=== PATIENT | female | born 1990 | race Caucasian/White ===

== ENCOUNTER 2024-06-07 12:23 | Outpatient (CLI) | payer OTHER, SELFPAY ==
--- NOTE | ~2024-06-07 | XR_ITS ---
CHEST RADIOGRAPH, PA AND LATERAL CLINICAL HISTORY: MID CHEST PAIN AND TIGHTNESS . COMPARISON: None available TECHNIQUE: PA and lateral views of the chest. FINDINGS The cardiomediastinal silhouette is unremarkable. The lungs are clear. Visualized osseous structures and soft tissues are unremarkable. IMPRESSION: No focal infiltrate or effusion. Reviewed, dictated and finalized at location A. [employer] EMPLOYMENT OPPORTUNITY OFFICER
== END 2024-06-07 12:24 | disposition home or self-care (01) ==
PROVIDERS: PCP Emergency Medicine; Visit Provider Nurse Practitioner Family
DX: J40 Bronchitis, not specified as acute or chronic (principal)
CPT/HCPCS: 71046

== ENCOUNTER 2024-09-06 12:38 | Outpatient (CLI) | payer OTHER, SELFPAY ==
--- OUTSIDE RECORDS SUMMARY | 2024-09-06 12:41 | XMS_ITS | Clinical Summary ---
Author Organization [facility] Address [address] [place] [address] Care Team Providers Care Client Services Representative Name Role Phone Jeremias Sutherland MD Primary Care Provider [phone] Allergies Active Allergy Reactions Criticality Noted Date Comments Latex Rash Low 10/23/2021 Seasonal Runny Nose,Eyes Water & Itch Low 022 Medications vitamin 27-1 MG Tab tablet Take 1 tablet by mouth daily. Active Active Problems Problem Noted Date Diagnosed Date History of section 11/27/2021 ([facility] 11/22/2021 Gestational HTN ([facility]) 11/22/2021 Comments Yes Encounters Date Type Department Care Team Description 06/18/2024 11:57 PM MANAGER DIALYSIS - 06/19/2024 1:32 AM [facility] Emergency [facility] Emergency Room [address] [place] [address] Obdulia Ash MD Vaginal Bleeding (/) Discharge Disposition: Home or Self Care (Routine Discharge) 06/18/2024 8:28 PM MANAGER DIALYSIS - 06/18/2024 11:24 PM [facility] Emergency [facility] Emergency Room [address] [place] [address] Sarah Chester DO Vaginal Bleeding Discharge Disposition: Another Health Care Institution Not Defined 06/18/2024 Travel from Last 3 Months Immunizations Name Administration Dates Next Due Tdap (Generic) 09/30/2021 Family History Medical History Relation Comments None Brother None Father Diabetes Mother Heart Mother Hyperlipidemia Mother Hypertension Mother Stroke Mother grows tumors- benign Mother None Sister 1 None Sister 2 None Sister 3 None Son Relation Status Comments Brother Alive Father Alive Mother Alive Sister 1 Alive Sister 2 Alive Sister 3 Alive Son Alive Social History Tobacco Use Types Packs/Day Years Used Date Smoking Tobacco: Never Smokeless Tobacco: Never Tobacco Cessation:Counseling Given: No Alcohol Use Standard Drinks/Week Comments Not Currently 0 (1 standard drink = 0.6 oz pur e alcohol) PHQ-2 Answer Date Recorded Patient Health Questionnaire-2 Score 0 09/01/2022 Comments Yes Sex and Gender Information Value Date Recorded Sex Assigned at Not on file Legal Sex Female 7:02 PM CDT Gender Identity Not on file Sexual Orientation Not on file Last Filed Vital Signs Vital Sign Reading Time Taken Comments Blood Pressure 118/67 06/19/2024 12:01 AM MANAGER DIALYSIS Pulse 80 06/18/2024 11:59 PM MANAGER DIALYSIS Temperature 36.4 C (97.6 F) 06/18/2024 11:59 PM MANAGER DIALYSIS Respiratory Rate 18 06/18/2024 11:59 PM MANAGER DIALYSIS Oxygen Saturation 100% 06/19/2024 12:01 AM MANAGER DIALYSIS Inhaled Oxygen Concentration - - Weight 151 kg (332 lb 14.3 oz) 06/18/2024 11:59 PM MANAGER DIALYSIS Height 170.2 cm (5' 7 ) 06/18/2024 11:59 PM MANAGER DIALYSIS Body Mass Index 52.14 06/18/2024 11:59 PM MANAGER DIALYSIS Plan of Treatment Health Maintenance Due Date Last Done Comments Cervical Cancer Screening Pa p Smear (Age 30 to 64) Every 3 Years 1992 Annual Physical 1995 Hepatitis C 2010 Hepatitis B Vaccines (1 of 3 - 19+ 3-dose series) 2011 Cervical Cancer Screening Pa p with HPV Testing (Age 30 to 64) Every 5 Years 2022 Cervical Cancer Screening with HPV 2022 PHQ-2 (Physician [place]) 09/01/2023 09/01/2022 COVID-19 Vaccine ( - 2023-2 5 season) 2024 Influenza Adult (#1) 2024 PHQ-2 (Physician [place]) 07/19/2024 09/01/2022 DTaP, Tdap and Td Vaccines ( 2 - Td or Tdap) 10/01/2031 09/30/2021 RSV Immunization or 60+ Years (1 - 1-dose 75+ series) 2067 HPV Vaccines Aged Out No longer eligi ble based on patient's age to complete this topic Meningococcal B Vaccine Aged Out No l onger eligible based on patient's age to complete this topic Meningococcal Vaccine Aged Out No lindy mitesh eligible based on patient's age to complete this topic Pneumococcal Vaccine: Pediat rics (0 to 5 Years) and At-Risk Patients (6 to 64 Years) Aged Out No longer eligi ble based on patient's age to complete this topic RSV Immunizations Under 20 Months Aged Out No longer eligible based on patient's age to complete this topic Procedures Procedure Name Priority Date/Time Associated Diagnosis Comments US OB <14WKS TA+TV STAT 06/19/2024 12 :52 AM MANAGER DIALYSIS HC BLOOD TYPING ABO STAT 06/18/2024 8 :55 PM MANAGER DIALYSIS URINALYSIS, AUTO, COMPLETE STAT 06/18/2024 8:55 PM MANAGER DIALYSIS HCG QUANT (SERUM)-CHORIONIC GONADOTROPIN STAT 06/18/2024 8:55 PM MANAGER DIALYSIS COMPREHENSIVE METABOLIC PANEL STAT 06/18/2024 8:55 PM MANAGER DIALYSIS CBC W/DIFF AUTOMATED STAT 06/18/2024 8:55 PM MANAGER DIALYSIS from Last 3 Months Results * US OB <14WKS TA+TV (06/19/2024 12:52 AM MANAGER DIALYSIS) Anatomical Region Laterality Modality Ultrasound 06/19/2024 1:00 AM MANAGER DIALYSIS Impressions 06/19/2024 1:16 AM MANAGER DIALYSIS IMPRESSION: 1. Single viable intrauterine estimated to be 9 weeks 6 days with MC 01/16/2025 +/- 2 weeks based on crown-rump length measurement, which is 6 days smaller than dates obtained from the LMP. 2. heart rate is 140 bpm. 3. Tiny subchorionic hemorrhage is suspected. 4. No yolk sac is visualized. 5. Right ovary is not visualized. What is reported to be the left ovary is upper normal in size with no suspicious mass. 6. No free fluid in the cul-de-sac and no suspicious adnexal mass. Referred By: SARAH CHESTER Interpreted By: Cordelia Fernandez MD, 06/19/2024 1:00 AM Narrative 06/19/2024 1:[address] [facility] [address] [place] [address] EXAM: US OB <14WKS TA + TV CLINICAL INFORMATION: Evaluate for ectopic .. LMP: 04/05/2024 corresponding to a 10 week 5 day with MC 01/10/2025. G3, P2. Vaginal bleeding today. TECHNIQUE: Multiple transabdominal and transvaginal sonographic images of the OB pelvis were obtained. COMPARISON: AP ectopic . FINDINGS: ? The uterus is anteverted and of normal size?measuring 13.8 x 10.2 x 0.5 cm with volume of 630.4 mL. There is a single viable intrauterine with heart rate of 140 bpm. [place]-rump length measurement is 3.0 cm corresponding to 9 weeks 6 day with MC 01/16/2025 +/- 2 weeks, which is 6 days smaller than dates obtained from the LMP, which is within 2 standard deviations. The yolk sac is not well visualized. Mean sac diameter is 3.81 cm corresponding to a 9 week 0 day . There is a tiny nonspecific 0.9 x 0.6 x 0.8 cm hypoechoic density anterior to the gestational sac that may represent a tiny subchorionic hemorrhage. What is reported as the left ovary by the labor relations manager measures 2.7 x 5.1 x 4.0 cm with volume of 28.8 mL. No suspicious mass is seen within the structure reported to be the left ovary. The right ovary is not visualized with either transabdominal or the transvaginal technique. No free fluid is seen in the cul-de-sac. No suspicious adnexal mass. ? Procedure Note Cordelia Fernandez MD - 06/19/2024 [facility] [address] [place] [address] EXAM: US OB <14WKS TA + TV CLINICAL INFORMATION: Evaluate for ectopic .. LMP: 4corresponding to a 10 week 5 day with MC 01/10/2025. G3, P2.Vaginal bleeding today. TECHNIQUE: Multiple transabdominal and transvaginal sonographic images ofthe OB pelvis were obtained. COMPARISON: AP ectopic . FINDINGS: ? The uterus is anteverted and of normal size?measuring 13.8 x 10.2 x 0.5 cmwith volume of 630.4 mL. There is a single viable intrauterine pregnancywith heart rate of 140 bpm. [place]-rump length measurement is 3.0 cmcorresponding to 9 weeks 6 day with MC 01/16/2025 +/- 2 weeks,which is 6 days smaller than dates obtained from the LMP, which is within2 standard deviations. The yolk sac is not well visualized. Mean sacdiameter is 3.81 cm corresponding to a 9 week 0 day . There is atiny nonspecific 0.9 x 0.6 x 0.8 cm hypoechoic density anterior to thegestational sac that may represent a tiny subchorionic hemorrhage. What is reported as the left ovary by the labor relations manager measures 2.7 x 5.1 x4.0 cm with volume of 28.8 mL. No suspicious mass is seen within thestructure reported to be the left ovary. The right ovary is notvisualized with either transabdominal or the transvaginal technique. Nofree fluid is seen in the cul-de-sac. No suspicious adnexal mass. ? IMPRESSION: 1. Single viable intrauterine estimated to be 9 weeks 6 dayswith MC 01/16/2025 +/- 2 weeks based on crown-rump length measurement,which is 6 days smaller than dates obtained from the LMP. 2. heart rate is 140 bpm. 3. Tiny subchorionic hemorrhage is suspected. 4. No yolk sac is visualized. 5. Right ovary is not visualized. What is reported to be the left ovaryis upper normal in size with no suspicious mass. 6. No free fluid in the cul-de-sac and no suspicious adnexal mass. Referred By: SARAH CHESTER Interpreted By: Cordelia Fernandez MD, 06/19/2024 1:00 AM Obdulia Ash MD ULTRASOUND Final Result * (ABNORMAL) Urinalysis, Auto, Complete (06/18/2024 8:55 PM MANAGER DIALYSIS) COLOR (U) YELLOW 06/18/2024 9:57 PM [facility] TRANSPARENCY CLEAR 06/18/2024 9:57 PM [facility] SPECIFIC GRAVITY (U) >1.030() 1.000 - 1.030 06/18/2024 9:57 PM [facility] U PH 6.0 5.0 - 9.0 06/18/2024 9:57 PM [facility] LEUKOCYTES (U) NEGATIVE NEGATIVE 06/18/2024 9:57 PM [facility] NITRITES NEGATIVE NEGATIVE 06/18/2024 9:57 PM [facility] PROTEIN RANDOM (U) NEGATIVE NEGATIVE 06/18/2024 9:57 PM [facility] GLUCOSE (U) NEGATIVE NEGATIVE 06/18/2024 9:57 PM [facility] KETONES MG/DL (U) NEGATIVE NEGATIVE 06/18/2024 9:57 PM [facility] BILIRUBIN (U) NEGATIVE NEGATIVE 06/18/2024 9:57 PM [facility] BLOOD (U) 2+(A) NEGATIVE 06/18/2024 9:57 PM [facility] WBC/HPF NONE SEEN 0 - 5 /HPF 06/18/2024 9:57 PM [facility] RBC/HPF 0-5 0 - 5 /HPF 06/18/2024 9:57 PM [facility] EPI/HPF FEW /HPF 06/18/2024 9:57 PM [facility] URINE SPECIMEN OBTAINED BY CLEAN CATCH PROCEDURE / Unknown 06/18/2024 8:55 PM MANAGER DIALYSIS us Denis Damián URINE ORDERABLES Final Result [facility] [address] [place] [address], [place] [phone] * (ABNORMAL) COMPREHENSIVE METABOLIC PANEL (06/18/2024 8:55 PM MANAGER DIALYSIS) GLUCOSE 80 70 - 99 MG/DL 06/18/2024 10:08 PM [facility] BUN 13 7 - 18 MG/DL 06/18/2024 10:08 PM [facility] CREATININE S/P/B 0.66 0.55 - 1.02 MG/DL 06/18/2024 10:08 PM [facility] SODIUM S/P/B 138 136 - 145 MMOL/L 06/18/2024 10:08 PM [facility] POTASSIUM S/P/B 3.4(L) 3.5 - 5.1 MMOL/L 06/18/2024 10:08 PM [facility] CHLORIDE S/P/B 101 100 - 108 MMOL/L 06/18/2024 10:08 PM [facility] CO2 27.5 21 - 32 MMOL/L 06/18/2024 10:08 PM [facility] CALCIUM S/P/B 9.3 8.5 - 10.1 MG/DL 06/18/2024 10:08 PM [facility] BILIRUBIN TOTAL S/P/B 0.2 0.2 - 1.2 MG/DL 06/18/2024 10:08 PM [facility] TOTAL PROTEIN S/P/B 7.6 6.4 - 8.2 G/DL 06/18/2024 10:08 PM [facility] ALBUMIN S/P/B 3.2(L) 3.4 - 5.0 G/DL 06/18/2024 10:08 PM [facility] AST 18 15 - 37 U/L 06/18/2024 10:08 PM [facility] ALT 22 14 - 55 U/L 06/18/2024 10:08 PM [facility] ALKALINE PHOSPHATASE S/P/B 81 50 - 136 U/L 06/18/2024 10:08 PM [facility] ANION GAP 9.5 5 - 15 MMOL/L 06/18/2024 10:08 PM [facility] BUN CREATININE RATIO 19.7 6 - 26 06/18/2024 10:08 PM [facility] A/G RATIO 0.7(L) 1.0 - 2.0 RATIO 06/18/2024 10:08 PM [facility] GFR ESTIMATE >90 >90 ML/MIN/1.7 3 M2 06/18/2024 10:08 PM [facility] Comment: NOTE: eGFR is not calculated for patients <18 years of age. This is an estimated GFR calculation using the new CKD EPI creatinine equation without race and so does not require a correction factor for race. This estimated GFR should not be used for calculating drug doses. 06/18/2024 8:55 PM MANAGER DIALYSIS us Sarah Chester DO LABORATORY Final Result [facility] [address] [place] [address], [place] [phone] * (ABNORMAL) HCG QUANTITATIVE SERUM (06/18/2024 8:55 PM MANAGER DIALYSIS) HCG QUANTITATIVE 38,380(H) 0 - 6 MIU/ML 06/18/2024 10:08 PM MANAGER DIALYSIS [facility] Comment: WEEKS OF REFERENCE RANGES NON- FEMALE 0-6 0.2 - 1 5 - 50 1 - 2 50 - 500 2 - 3 100 - 5000 3 - 4 500 - 10,000 4 - 5 1000 - 50,000 5 - 6 10,000 - 100,000 6 - 8 15,000 - 200,000 2 - 3 MONTHS 10,000 - 100,000 06/18/2024 8:55 PM MANAGER DIALYSIS [facility] LABORATORY Final Result Performing Organization Address City/[facility]/ZIP Co de Phone Number [facility] [address] [place] [address], [place] [phone] * BLOOD TYPING, ABO AND RH (06/18/2024 8:55 PM MANAGER DIALYSIS) ABO/RH A POSITIVE 06/18/2024 9:51 PM MANAGER DIALYSIS [facility] 06/18/2024 8:55 PM MANAGER DIALYSIS [facility] BLOOD BANK TEST ORDERABLES Fin al Result [facility] [address] [place] [address], [place] [phone] * (ABNORMAL) CBC W/DIFF AUTOMATED (06/18/2024 8:55 PM MANAGER DIALYSIS) WBC 12.03(H) 4.4 - 11.0 x10'3/uL 06/18/2024 9:14 PM MANAGER DIALYSIS [facility] RBC 4.25(L) 4.50 - 5.10 x10'6/uL 06/18/2024 9:14 PM MANAGER DIALYSIS [facility] HGB 12.2(L) 12.3 - 15.3 G/DL 06/18/2024 9:14 PM [facility] HCT 36.7 35.9 - 44.6 % 06/18/2024 9:14 PM [facility] MCV 86.4 80.0 - 96.0 FL 06/18/2024 9:14 PM [facility] MCH 28.7 25.3 - 30.9 PG 06/18/2024 9:14 PM [facility] MCHC 33.2 31.0 - 34.1 G/DL 06/18/2024 9:14 PM [facility] RDW 13.4 12.4 - 15.1 % 06/18/2024 9:14 PM [facility] PLT 311 151 - 353 x10'3/uL 06/18/2024 9:14 PM [facility] MPV 9.8 9.6 - 12.0 FL 06/18/2024 9:14 PM [facility] RBC MORPHOLOGY NORMAL 06/18/2024 9:14 PM [facility] PLT MORPH. NORMAL 06/18/2024 9:14 PM [facility] WBC MORPHOLOGY NORMAL 06/18/2024 9:14 PM [facility] LYMPHOCYTES % 20.0 15.8 - 45.0 % 06/18/2024 9:14 PM [facility] NEUTROPHILS % 71.4 42.1 - 71.9 % 06/18/2024 9:14 PM [facility] MONOCYTES % 5.9 5.7 - 12.5 % 06/18/2024 9:14 PM [facility] EOSINOPHILS 2.3 0.0 - 5.6 % 06/18/2024 9:14 PM [facility] BASOPHILS 0.2 0.0 - 1.3 % 06/18/2024 9:14 PM MANAGER DIALYSIS [facility] ABS. NEUTROPHILS 8.57(H) 1.40 - 6.00 x10'3/uL 06/18/2024 9:14 PM MANAGER DIALYSIS [facility] IMMATURE GRANS % 0.2 0.0 - 0.5 % 06/18/2024 9:14 PM MANAGER DIALYSIS [facility] ABS. LYMPHOCYTES 2.41 0.80 - 4.70 x10'3/uL 06/18/2024 9:14 PM MANAGER DIALYSIS [facility] 06/18/2024 8:55 PM MANAGER DIALYSIS Sarah Chester DO LABORATORY Final Result [facility] [address] [place] [address], from Last 3 Months Insurance Advance Directives * Full Code (Latest Code Status on File) Date Activated Date Inactivated Comments 11/27/2021 9:25 AM 11/29/2021 3:42 PM * Full Code Date Activated Date Inactivated Comments 11/22/2021 12:01 PM 11/23/2021 11:29 AM * Full Code Date Activated Date Inactivated Comments 11/19/2021 12:13 PM 11/19/2021 3:01 PM Care Teams Client Services Representative Relationship Specialty Start Date End Date Jeremias Sutherland MD [address] [place] [address] PCP - General EMERGENCY MEDICINE 05/15/23
--- OUTSIDE RECORDS SUMMARY | 2024-09-06 12:41 | XMS_ITS | Encounter Summary ---
Author Organization [facility] Address [address] [place] [address] Care Team Providers Care Mix Maker Name Role Phone Rachel Valenzuela MD Primary Care Provider + Nolvia Jonas MD Primary Care Provider [phone] Jeremias Sutherland MD Primary Care Provider [phone] Encounter Details Date Type Department Care Team (Late st Contact Info) Description 10/17/2014 Abstract [facility] CONVERSION [address] [place] [address] , Subha Shannon MD Social History Tobacco Use Types Packs/Day Years Used Date Smoking Tobacco: Never Assessed Comments Unknown Sex and Gender Information Value Date Recorded Sex Assigned at Not on file Legal Sex Female 7:02 PM CDT Gender Identity Not on file Sexual Orientation Not on file documented as of this encounter Plan of Treatment Not on file documented as of this encounter Visit Diagnoses Not on filedocumented in this encounter Care Teams Mix Maker Relationship Specialty Start Date End Date Rachel Valenzuela MD PCP - General FAMILY PRACTICE 07/15/21 10/22/21 [place] [address] [facility] [address] [place] [address] PCP - General FAMILY PRACTICE 10/23/21 05/14/23 Jeremias Sutherland MD [address] [place] [address] PCP - General EMERGENCY MEDICINE 05/15/23 documented as of this encounter
--- OUTSIDE RECORDS SUMMARY | 2024-09-06 12:41 | XMS_ITS | Clinical Summary ---
Author Organization [facility] Address [address] [place] [phone] Care Team Providers Care Political Aide Name Role Phone Unavailable Primary Care Provider Unavailabl e Allergies Active Allergy Reactions Criticality Noted Date Comments Latex Rash Low 10/23/2021 Medications No known medications Active Problems Problem Noted Date Diagnosed Date H/O seasonal allergies 12/02/2022 Gestational HTN 11/22/2021 Social History Tobacco Use Types Packs/Day Years Used Date Smoking Tobacco: Never Comments No Sex and Gender Information Value Date Recorded Sex Assigned at Not on file Legal Sex Female 8:11 AM CDT Gender Identity Not on file Sexual Orientation Not on file Last Filed Vital Signs Vital Sign Reading Time Taken Comments Blood Pressure 114/76 12/02/2022 9:27 AM CDT Pulse 66 12/02/2022 9:27 AM CDT Temperature 36.8 C (98.2 F) 12/02/2022 9:27 AM CDT Respiratory Rate - - Oxygen Saturation 97% 12/02/2022 9:27 AM CDT Inhaled Oxygen Concentration - - Weight 144.4 kg (318 lb 6 oz) 12/02/2022 9:27 AM CDT Height 170.2 cm (5' 7 ) 12/02/2022 9:27 AM CDT Body Mass Index 49.86 12/02/2022 9:27 AM CDT Plan of Treatment Upcoming Encounters Date Type Department Care Team (Late st Contact Info) Description 09/14/2024 10:15 AM CYTOGENETICS TECHNOLOGIST Appointment [facility] [place] [address] [place] [id number] Buzz Dhillon MD [address] [place] [address] Health Maintenance Due Date Last Done Comments HEPATITIS B VACCINES (1 of 3 - 19+ 3-dose series) 2011 CERVICAL CANCER SCREENING 2022 INFLUENZA VACCINE (#1) 2024 Preventative Visit- Commercial 07/19/2024 DTAP/TDAP/TD VACCINES (2 - T d or Tdap) 10/01/2031 09/30/2021 HPV VACCINES Aged Out No longer eligi ble based on patient's age to complete this topic Insurance [employer] CHOICE
[2024-09-06 13:29] LABS: Basophils Percent Auto 0.3 % (0.2-1.2); Eosinophils Absolute Auto 0.2 K/mm3 (0-0.3); Eosinophils Percent Auto 1.9 % (0-4.4); Hemoglobin 11.5 g/dL (12.0-15.0); Immature Granulocyte Absolute 0.06 K/mm3 (0.00-0.031); Immature Granulocyte Percent A 0.5 % (0-0.5); Lymphocytes Percent Auto 15.2 % (18.3-44.2); Mean Corpuscular HGB Conc 32.9 g/dl (32-36); Mean Corpuscular Hemoglobin 28.4 pg (26-34); Mean Corpuscular Volume 86.4 fl (80-100); Mean Platelet Volume 10.2 fl (7.4-10.4); Monocytes Absolute Auto 0.7 K/mm3 (0.1-0.6); Monocytes Percent Auto 5.8 % (2.6-8.5); Neutrophils Percent Auto 76.3 % (45.5-73.1); Platelet Count Result 315 k/mm3 (150-375); Red Blood Count 4.05 M/mm3 (4.2-5.4); Red Cell Distribution Width 13.6 % (11.5-14.5); White Blood Count 11.9 K/mm3 (4.5-10.0)
[2024-09-06 13:42] LABS: Hemoglobin A1C 5.1 % (<5.7)
[2024-09-06 13:47] LABS: Add Urine Microscopic? NO; Appearance Urine Clear (Clear); Bilirubin Urine Negative (Negative); Blood Urine Negative (Negative); Color Urine Yellow (Yellow); Glucose Urine UA Negative (Negative); Ketones Urine Negative (Negative); Leukocyte Esterase Ur Negative LEU/UL (Negative); Nitrate Urine Negative (Negative); Protein Urine Negative (Negative); Specific Grav Ur 1.003 (1.001-1.035); Urobilinogen Urine 0.2 mg/dL (<2.0); pH Urine 6.5 (5.0-9.0)
[2024-09-06 14:10] LABS: HIV 1/2 Ab P24 Ag Result Negative (Negative)
[2024-09-06 14:19] LABS: Syphilis IgG/IgM Antibody Negative (Negative)
[2024-09-06 14:24] LABS: Hepatitis B Surface Antigen Negative (Negative); Rubella IgG Antibody 39.5 IU/ML
[2024-09-06 14:41] LABS: Hepatitis C Virus Antibody Negative (Negative)
[2024-09-08 08:28] LABS: Varicella IgG Antibody 3.62 S/CO
[2024-09-08 18:48] LABS: Hematocrit 36.4 % (35.0-45.0); Hemoglobin 11.7 g/dL (11.7-15.5); MCH 28.2 pg (27.0-33.0); MCV 87.7 fL (80.0-100.0); RDW 12.9 % (11.0-15.0); Red Blood Cell Count 4.15 Million/uL (3.80-5.10)
== END 2024-09-06 12:39 | disposition home or self-care (01) ==
LOC: ANHLAB 12:39
PROVIDERS: PCP Emergency Medicine; Visit Provider Nurse Practitioner Obstetrics & Gynecology
DX: Z34.90 Encounter for supervision of normal pregnancy, unspecified, unspecified trimester (principal)
CPT/HCPCS: 36415; 81003; 83021; 83036; 85025; 86593; 86703; 86762; 86787; 86803; 86850; 86900; 86901; 87086; 87340; G0432

== ENCOUNTER 2024-11-27 11:47 | Outpatient (CLI) | payer OTHER, SELFPAY ==
--- NOTE | ~2024-11-27 | XR_ITS ---
Clinical Indication: Wheezing PA and lateral views of the chest: Comparison: 06/07/2024 Findings: The lungs are clear, without evidence of focal consolidation or pleural effusion. Cardiome diastinal silhouette is within normal limits. Bones and soft tissues are unremarkable. Impression: Normal chest. Reviewed, dictated and finalized at location . Impression: Normal chest.
--- OUTSIDE RECORDS SUMMARY | 2024-11-27 11:51 | XMS_ITS | Encounter Summary ---
Author Organization [facility] Address [address] [place] [address] Care Team Providers Care Health Underwriter Name Role Phone Rachel Valenzuela MD Primary Care Provider + Nolvia Jonas MD Primary Care Provider [phone] Jeremias Sutherland MD Primary Care Provider [phone] Encounter Details Date Type Department Care Team (Late st Contact Info) Description 10/17/2014 Abstract [facility] CONVERSION [address] [place] [address] , Subha Shannon MD Social History Tobacco [...] on filedocumented in this encounter Care Teams Health Underwriter Relationship Specialty Start Date End Date Rachel Valenzuela MD PCP - General FAMILY PRACTICE 07/15/21 10/22/21 [place] [address] [facility] [address] [place] [address] PCP - General FAMILY PRACTICE 10/23/21 05/14/23 Jeremias Sutherland MD [address] [place] [address] PCP - General EMERGENCY MEDICINE 05/15/23 documented as of this encounter
--- OUTSIDE RECORDS SUMMARY | 2024-11-27 11:51 | XMS_ITS | Clinical Summary ---
Author Organization [facility] Address [address] [place] [address] Care Team Providers Care Ctrs Name Role Phone Jeremias Sutherland MD Primary Care Provider [phone] Allergies Active Allergy Reactions Criticality Noted Date Comments Latex Rash Low 10/23/2021 Seasonal Runny Nose,Eyes Water & Itch Low 022 Medications vitamin 27-1 MG Tab tablet Take 1 tablet by mouth daily. Active Active Problems Problem Noted Date Diagnosed Date History of section 11/27/2021 ([facility]) 11/22/2021 Gestational HTN ([facility]) 11/22/2021 Comments Yes Immunizations Immunization Administration Dates Next Due Tdap (Generic) 09/30/2021 [...] Comments Blood Pressure 118/67 06/19/2024 12:01 AM GOVERNMENT EMPLOYEE Pulse 80 06/18/2024 11:59 PM GOVERNMENT EMPLOYEE Temperature 36.4 C (97.6 F) 06/18/2024 11:59 PM GOVERNMENT EMPLOYEE Respiratory Rate 18 06/18/2024 11:59 PM GOVERNMENT EMPLOYEE Oxygen Saturation 100% 06/19/2024 12:01 AM GOVERNMENT EMPLOYEE Inhaled Oxygen Concentration - - Weight 151 kg (332 lb 14.3 oz) 06/18/2024 11:59 PM GOVERNMENT EMPLOYEE Height 170.2 cm (5' 7 ) 06/18/2024 11:59 PM GOVERNMENT EMPLOYEE Body Mass Index 52.14 06/18/2024 11:59 PM GOVERNMENT EMPLOYEE Plan of Treatment Health Maintenance Due Date Last Done Comments Cervical Cancer Screening Pa p Smear (Age 30 to 64) Every 3 Years 1992 Annual Physical 1995 Hepatitis C 2010 Hepatitis B Vaccines (1 of 3 - 19+ 3-dose series) 2011 Cervical Cancer Screening Pa p with HPV Testing (Age 30 to 64) Every 5 Years 2022 Cervical Cancer Screening with HPV 2022 COVID-19 Vaccine ( - 2023-2 5 season) 2024 PHQ-2 (Physician [place]) 07/19/2024 DTaP, Tdap and Td Vaccines ( 2 [...] 5 Years) and At-Risk Patients (6 to 49 Years) Aged Out No longer eligi ble based on patient's age to complete this topic RSV Immunizations Under 20 Months Aged Out No longer eligible based on patient's age to complete this topic Insurance [employer] Advance Directives * Full Code (Latest Code Status on File) Date Activated Date Inactivated Comments 11/27/2021 9:25 AM 11/29/2021 3:42 PM * Full Code Date Activated Date Inactivated Comments 11/22/2021 12:01 PM 11/23/2021 11:29 AM * Full Code Date Activated Date Inactivated Comments 11/19/2021 12:13 PM 11/19/2021 3:01 PM Care Teams Ctrs Relationship Specialty Start Date End Date Jeremias Sutherland MD [address] [place] [address] PCP - General EMERGENCY MEDICINE 05/15/23
--- OUTSIDE RECORDS SUMMARY | 2024-11-27 11:51 | XMS_ITS | Clinical Summary ---
Author Organization [facility] Address [address] [place] [phone] Care Team Providers Care College Admissions Counselor Name Role Phone Unavailable Primary Care Provider Unavailabl e Allergies Active Allergy Reactions Criticality Noted Date Comments Latex Rash Low 10/23/2021 Medications No known medications Active Problems Problem Noted Date Diagnosed Date H/O seasonal allergies 12/02/2022 Gestational HTN 11/22/2021 Encounters Date Type Department Care Team Description 10/17/2024 External Device Data STL ABSTRACTION Provider, Abstract 10/12/2024 10:15 AM CDT - 10/12/2024 11:59 PM CDT Hospital Encounter [facility] [address] [place] [phone] Trina Gonzalez MD Discharge Disposition: Home or Self Care 09/23/2024 External Device Data STL ABSTRACTION Provider, Abstract 09/22/2024 External Device Data STL ABSTRACTION Provider, Abstract 09/20/2024 External Device Data STL ABSTRACTION Provider, Abstract 09/14/2024 10:09 AM BOTTLE SORTER - 09/14/2024 11:59 PM BOTTLE SORTER Hospital Encounter [facility] [address] [place] [phone] Buzz Bowens MD Discharge Disposition: Home or Self Care from Last 3 Months Social History Tobacco Use Types Packs/Day Years [...] 12/02/2022 9:27 AM CDT Plan of Treatment Health Maintenance Due Date Last Done Comments HEPATITIS B VACCINES (1 of 3 - 19+ 3-dose series) 2011 HPV/Cotest (21-29) 2013 CERVICAL CANCER SCREENING 2022 HPV/Cotest (30-65) 2022 PAP SMEAR 2022 INFLUENZA VACCINE (#1) 2024 DTAP/TDAP/TD VACCINES (2 - T d or Tdap) 10/01/2031 09/30/2021 HPV VACCINES Aged Out No longer eligi ble based on patient's age to complete this topic Procedures Procedure Name Priority Date/Time Associated Diagnosis Comments US OB FOLLOW UP PER FETUS Routine 10/12/2024 11:10 AM CDT Obesity affecting , antepartum, second trimester US OB 14+ WKS SINGLE GEST Routine 09/14/2024 11:17 AM BOTTLE SORTER screening for malformation using ultrasonics from Last 3 Months Results * US OB FOLLOW UP PER FETUS (10/12/2024 11:10 AM CDT) Anatomical Region Laterality Modality Pelvis Ultrasound 10/12/2024 10:3 9 AM CDT Narrative 10/12/2024 11:19 AM CDT STL FOLLOW UP ----- Pat. Name: MARCI ADAM Study Date: 10/12/2024 10:39am Pat. NO: [id number] Referring MD: BUZZ BOWENS MD Site: [facility] Technician: Tarah Hess RDMS : 1990 Age: 34 ----- INDICATION ----- Maternal Obesity (BMI>40) Complicating Screening Follow-Up 4ch, palate, spine, R kidney CODING ----- Diagnoses Z3A.27: Weeks of gestation O99.212: Obesity complicating Z3A.27: Weeks of gestation Z36.2: Encounter for other screening follow-up O99.212: Obesity complicating Procedures 61889: Ultrasound, uterus, real time with image documentation, follow up, transabdominal approach per fetus HISTORY ----- OB History 3. Para 2 MATERNAL ASSESSMENT ----- Physical Exam Initial weight 150 kg, 330 lb. Initial BMI 51.69 kg/m METHOD ----- Transabdominal ultrasound examination ----- Bullock . Number of fetuses: 1 DATING ----- GA by prior assessment 27 w + 1 d MC by prior assessment: 01/10/2025 Ultrasound examination on: 10/12/2024 GA by U/S based upon: AC, BPD, EFW, Femur, HC GA by U/S 27 w + 0 d MC by U/S: 01/11/2025 Method of dating: Restore dating from previous exam Assigned: based on stated MC, selected on 09/14/2024 Assigned GA 27 w + 1 d Assigned MC: 01/10/2025 BIOMETRY ----- BPD 64.7 mm 26w 1d 12% Hadlock OFD 88.9 mm 28w 4d 89% Nawaf HC 244.3 mm 26w 4d 9% Hadlock AC 237.9 mm 28w 1d 71% Hadlock Femur 50.1 mm 27w 0d 29% Hadlock HC / AC 1.03 11% Nicolaides Weight Calculation: EFW 1,072 g 27w 1d 49% Hadlock EFW (lb,oz) 2 lb 6 oz EFW by Hadlock ([id number]) Head / Face / Neck Biometry: Director Women 2.1 mm Extremities / Bony Struc Biometry: FL / BPD 0.77 FL / HC 0.21 FL / AC 0.21 GENERAL EVALUATION ----- Cardiac activity present. FHR 130 bpm. movements: present. Presentation: cephalic Placenta: Placental site: posterior Umbilical cord: Cord vessels: 3 vessel cord. Insertion site: placental insertion: normal Amniotic fluid: Amount of AF: normal amount. MVP 4.7 cm ANATOMY ----- The following structures appear normal: Head / Neck Cranium. Lateral ventricles. Choroid plexus. Midline falx. Cavum septi pellucidi. Cerebellum. Cisterna magna. Face Palate. Heart / Thorax 4-chamber view. Diaphragm. Abdomen Stomach. Kidneys. Bladder. Spine Cervical spine. Thoracic spine. Lumbar spine. Sacral spine. sex: female. GROWTH OVERVIEW ----- Exam date GA BPD (mm) HC (mm) AC (mm) FL (mm) HL (mm) EFW (g) 09/14/2024 23w 1d 54.0 20% 201.4 9% 194.1 72% 45.1 88% 36.3 25% 664 85% 10/12/2024 27w 1d 64.7 12% 244.3 9% 237.9 71% 50.1 29% 1,072 49% COMMENT ----- Patient's name and date of were verified by the button cutting machine operator prior to the exam IMPRESSION ----- IUP at 27w 1d cephalic presentation AGA growth pattern, EFW 1072 g (49%) with appropriate interval growth Normal amniotic fluid volume, MVP 4.7 cm The remaining images from the anatomic survey are completed today with normal appearance of 4ch, right kidney, spine, and palate. Anatomy is now complete. Recommendations: - Recommend growth at 32-36 weeks and as otherwise clinically indicated (location at discretion of primary provider) Procedure Note Lawanda Quevedo MD - 10/12/2024 STL FOLLOW UP ----- Pat. Name:Roman ADAM Date:10/12/2024 10:39am Pat. NO: [id number] MD:BUZZ BOWENS [facility]Tarah AugustLondon GÓMEZ :1990Age:34 ----- INDICATION ----- Maternal Obesity (BMI>40) Complicating Screening Follow-Up 4ch, palate, spine, Rkidney CODING ----- Diagnoses Z3A.27: Weeks of gestation O99.212: Obesity complicating Z3A.27: Weeks of gestation Z36.2: Encounter for other screeningfollow-up O99.212: Obesity complicating Procedures 13291: Ultrasound, uterus, real time withimage documentation, follow up, transabdominal approach per fetus HISTORY ----- OB History 3. Para 2 MATERNAL ASSESSMENT ----- Physical Exam Initial weight 150 kg, 330 lb. Initial BMI 51.69kg/m METHOD ----- Transabdominal ultrasound examination ----- Bullock . Number of fetuses: 1 DATING ----- GA by prior [id number] w + 1 d MC by prior assessment:01/10/2025 Ultrasound examination on:10/12/2024 GA by U/S based upon:AC, BPD, EFW, Femur, HC GA by U/S27 w + 0 d MC by U/S:01/11/2025 Method of dating:Restore dating from previous exam Assigned:based on stated MC, selected on 09/14/2024 Assigned GA27 w + 1 d Assigned MC:01/10/2025 BIOMETRY ----- BPD 64.7 mm 26w 1d 12%Hadlock OFD 88.9 mm 28w 4d 89%Nawaf HC 244.3 mm 26w 4d 9%Hadlock AC 237.9 mm 28w 1d 71%Hadlock Femur 50.1 mm 27w 0d 29%Hadlock HC / AC 1.03 11%Nicolaides Weight Calculation: EFW 1,072 g 27w 1d49% Hadlock EFW (lb,oz) 2 lb 6 oz EFW by Hadlock ([id number]) Head / Face / Neck Biometry: Director Women 2.1mm Extremities / Bony Struc Biometry: FL / BPD 0.77 FL / HC 0.21 FL / AC 0.21 GENERAL EVALUATION ----- Cardiac activity present. FHR 130 bpm. movements: present.Presentation: cephalic Placenta: Placental site: posterior Umbilical cord: Cord vessels: 3 vessel cord. Insertion site: placentalinsertion: normal Amniotic fluid: Amount of AF: normal amount. MVP 4.7 cm ANATOMY ----- The following structures appear normal: Head / Neck Cranium. Lateral ventricles. Choroid plexus.Midline falx. Cavum septi pellucidi. Cerebellum. Cisterna magna. Face Palate. Heart / Thorax 4-chamber view. Diaphragm. Abdomen Stomach. Kidneys. Bladder. Spine Cervical spine. Thoracic spine. Lumbar spine.Sacral spine. sex: female. GROWTH OVERVIEW ----- Exam date GA BPD (mm) HC (mm) AC (mm) FL(mm) HL (mm) EFW (g) 09/14/2024 23w 1d 54.0 20% 201.4 9% 194.1 72%45.1 88% 36.3 25% 664 85% 10/12/2024 27w 1d 64.7 12% 244.3 9% 237.9 71%50.1 29% 1,072 49% COMMENT ----- Patient's name and date of were verified by the button cutting machine operator prior tothe exam IMPRESSION ----- IUP at 27w 1d cephalic presentation AGA growth pattern, EFW 1072 g (49%) with appropriate interval growth Normal amniotic fluid volume, MVP 4.7 cm The remaining images from the anatomic survey are completed today withnormal appearance of 4ch, right kidney, spine, and palate. Anatomy is now complete. Recommendations: - Recommend growth at 32-36 weeks and as otherwise clinically indicated(location at discretion of primary provider) us Trina Gonzalez MD US ORDERABLES Final Resul t * US OB 14+ WKS SINGLE GEST (09/14/2024 11:17 AM BOTTLE SORTER) Anatomical Region Laterality Modality Pelvis Ultrasound 09/14/2024 10:1 7 AM BOTTLE SORTER Narrative 09/14/2024 11:22 AM BOTTLE SORTER STL COMP ----- Pat. Name: MARCI ADAM Study Date: 09/14/2024 10:17am Pat. NO: [id number] Referring MD: BUZZ BOWENS MD Site: [facility] Technician: Tarah Hess RDMS : 1990 Age: 34 ----- INDICATION ----- Anatomy Survey Maternal Obesity (BMI>40) Complicating CODING ----- Diagnoses Z3A.23: Weeks of gestation O99.212: Obesity complicating Z36.3: Encounter for screening for malformations Procedures 98695: Ultrasound, uterus, real time with image documentation, and maternal evaluation plus detailed anatomic examination, transabdominal approach HISTORY ----- OB History 3. Para 2 MATERNAL ASSESSMENT ----- Physical Exam Initial weight 150 kg, 330 lb. Initial BMI 51.69 kg/m METHOD ----- Transabdominal ultrasound examination ----- Bullock . Number of fetuses: 1 DATING ----- Method of dating: based on stated MC GA by prior assessment 23 w + 1 d MC by prior assessment: 01/10/2025 Ultrasound examination on: 09/14/2024 GA by U/S based upon: AC, BPD, EFW, Femur, HC GA by U/S 23 w + 4 d MC by U/S: 01/07/2025 Assigned: based on stated MC, selected on 09/14/2024 Assigned GA 23 w + 1 d Assigned MC: 01/10/2025 BIOMETRY ----- BPD 54.0 mm 22w 3d 20% Hadlock OFD 71.8 mm 24w 0d 71% Nawaf HC 201.4 mm 22w 2d 9% Hadlock Cerebellum tr 21.9 mm 21w 3d 9% Ventura AC 194.1 mm 24w 1d 72% Hadlock Femur 45.1 mm 24w 6d 88% Hadlock Humerus 36.3 mm 22w 5d 25% Nawaf HC / AC 1.04 5% Nicolaides Weight Calculation: EFW 664 g 24w 0d 85% Hadlock EFW (lb,oz) 1 lb 7 oz EFW by Hadlock ([id number]) Head / Face / Neck Biometry: Director Women 5.3 mm CM 5.5 mm 42% Nicolaides Inner IOD 16.7 mm Extremities / Bony Struc Biometry: FL / BPD 0.84 FL / HC 0.22 FL / AC 0.23 Tibia 38.2 mm 24w 4d 88% Nawaf GENERAL EVALUATION ----- Cardiac activity present. FHR 150 bpm. movements: present. Presentation: cephalic Placenta: Placental site: posterior Umbilical cord: Cord vessels: 3 vessel cord. Insertion site: placental insertion: normal Amniotic fluid: Amount of AF: normal amount. MVP 3.0 cm ANATOMY ----- The following structures appear normal: Head / Neck Cranium. Lateral ventricles. Choroid plexus. Midline falx. Cavum septi pellucidi. Cerebellum. Cisterna magna. Thalami. Nuchal fold. Face Lips. Profile. Nose. Orbits. Heart / Thorax RVOT view. LVOT view. 3-vessel view. 6-nbuqxv-hwliguf view. Situs. Aortic arch view. Ductal arch view. Superior vena cava. Inferior vena cava. High short axis view. Cardiac rhythm. Diaphragm. Abdomen Abdominal wall. Cord insertion. Stomach. Left kidney. Bladder. Genitals. Extremities / Arms. Right hand. Left hand. Legs. Right foot. Left foot. Skeleton The following structures could not be adequately visualized: Face Palate. Heart / Thorax 4-chamber view. Abdomen Right kidney. Spine Cervical spine. Thoracic spine. Lumbar spine. Sacral spine. sex: female. MATERNAL STRUCTURES ----- Cervix Visualized Approach - Transabdominal: Cervical length 41.2 mm Right Ovary Normal Size 25 mm x 32 mm x 17 mm. Vol 7.4 cm Left Ovary Suboptimal GROWTH OVERVIEW ----- Exam date GA BPD (mm) HC (mm) AC (mm) FL (mm) HL (mm) EFW (g) 09/14/2024 23w 1d 54.0 20% 201.4 9% 194.1 72% 45.1 88% 36.3 25% 664 85% COMMENT ----- Patient's name and date of were verified by the button cutting machine operator before the exam IMPRESSION ----- IUP at 23w 1d AGA growth with EFW 664 g (85%) No major structural malformations are identified within the limits of ultrasound, however some views are suboptimal and thus incomplete including 4ch, right kidney, spine, palate. No soft markers of aneuploidy are visualized. Normal amniotic fluid volume, MVP 3 cm Normal cervical length, 41.2 mm Placenta is posterior with no previa Recommendations: - Recommend growth and completion of anatomy in 4 weeks Procedure Note Lawanda Quevedo MD - 09/14/2024 STL COMP ----- Pat. Name:Roman ADAM Date:09/14/2024 10:17am Pat. NO: [id number] MD:BUZZ BOWENS MD [facility] Hess RDMS :1990Age:34 ----- INDICATION ----- Anatomy Survey Maternal Obesity (BMI>40) Complicating CODING ----- Diagnoses Z3A.23: Weeks of gestation O99.212: Obesity complicating Z36.3: Encounter for screening formalformations Procedures [id number]: Ultrasound, uterus, real time withimage documentation, and maternal evaluation plus detailed anatomic examination,transabdominal approach HISTORY ----- OB History 3. Para 2 MATERNAL ASSESSMENT ----- Physical Exam Initial weight 150 kg, 330 lb. Initial BMI 51.69kg/m METHOD ----- Transabdominal ultrasound examination ----- Blulock . Number of fetuses: 1 DATING ----- Method of dating:based on stated MC GA by prior [id number] w + 1 d MC by prior assessment:01/10/2025 Ultrasound examination on:09/14/2024 GA by U/S based upon:AC, BPD, EFW, Femur, HC GA by U/S23 w + 4 d MC by U/S:01/07/2025 Assigned:based on stated MC, selected on 09/14/2024 Assigned GA23 w + 1 d Assigned MC:01/10/2025 BIOMETRY ----- BPD 54.0 mm 22w 3d20% Hadlock OFD 71.8 mm 24w 0d71% Nawaf HC 201.4 mm 22w 2d9% Hadlock Cerebellum tr 21.9 mm 21w 3d9% Ventura AC 194.1 mm 24w 1d72% Hadlock Femur 45.1 mm 24w 6d88% Hadlock Humerus 36.3 mm 22w 5d25% Nawaf HC / AC 1.04 5%Nolantish Weight Calculation: EFW 664 g 24w 0d 85%Hadlock EFW (lb,oz) 1 lb 7 oz EFW by Hadlock ([id number]) Head / Face / Neck Biometry: Director Women 5.3 mm CM 5.5 mm 42%Nicolaides Inner IOD 16.7 mm Extremities / Bony Struc Biometry: FL / BPD 0.84 FL / HC 0.22 FL / AC 0.23 Tibia 38.2 mm 24w 4d 88%Nawaf GENERAL EVALUATION ----- Cardiac activity present. FHR 150 bpm. movements: present.Presentation: cephalic Placenta: Placental site: posterior Umbilical cord: Cord vessels: 3 vessel cord. Insertion site: placentalinsertion: normal Amniotic fluid: Amount of AF: normal amount. MVP 3.0 cm ANATOMY ----- The following structures appear normal: Head / Neck Cranium. Lateral ventricles. Choroid plexus.Midline falx. Cavum septi pellucidi. Cerebellum. Cisterna magna. Thalami. Nuchal fold. Face Lips. Profile. Nose. Orbits. Heart / Thorax RVOT view. LVOT view. 3-vessel view.7-[id number]-xrbpmzf view. Situs. Aortic arch view. Ductal arch view. Superior vena cava. Inferior vena cava. High shortaxis view. Cardiac rhythm. Diaphragm. Abdomen Abdominal wall. Cord insertion. Stomach. Leftkidney. Bladder. Genitals. Extremities / Arms. Right hand. Left hand. Legs. Right foot.Left foot. Skeleton The following structures could not be adequately visualized: Face Palate. Heart / Thorax 4-chamber view. Abdomen Right kidney. Spine Cervical spine. Thoracic spine. Lumbar spine.Sacral spine. sex: female. MATERNAL STRUCTURES ----- Cervix Visualized Approach - Transabdominal: Cervical length 41.2mm Right Ovary Normal Size 25 mm x 32 mm x 17 mm. Vol 7.4 cm Left Ovary Suboptimal GROWTH OVERVIEW ----- Exam date GA BPD (mm) HC (mm) AC (mm) FL(mm) HL (mm) EFW (g) 09/14/2024 23w 1d 54.0 20% 201.4 9% 194.1 72%45.1 88% 36.3 25% 664 85% COMMENT ----- Patient's name and date of were verified by the button cutting machine operator beforethe exam IMPRESSION ----- IUP at 23w 1d AGA growth with EFW 664 g (85%) No major structural malformations are identified within the limitsof ultrasound, however some views are suboptimal and thus incomplete including 4ch, right kidney, spine, palate.No soft markers of aneuploidy are visualized. Normal amniotic fluid volume, MVP 3 cm Normal cervical length, 41.2 mm Placenta is posterior with no previa Recommendations: - Recommend growth and completion of anatomy in 4 weeks us Buzz Bowens MD ORDERABLES Final Result from Last 3 Months Insurance
--- OUTSIDE RECORDS SUMMARY | 2024-11-27 11:51 | XMS_ITS | Clinical Summary ---
Author Organization [facility] Address [address] [place] [address] Care Team Providers Care Outdoor Recreation Specialist Name Role Phone Unavailable Primary Care Provider Unavailabl e Source Comments [facility],non-owned Affiliates and Associated Physician Practices is amultiple site organization consisting of ambulatory clinics and hospital sitesin [place], [place], [place] and [place]. This disclosure is being madepursuant to the Care Everywhere program and may not contain all information available regarding this patient. Last updated 18.[facility] Encounters Date Type Department Care Team Description 11/24/2024 11:59 PM CDT Hospital Encounter [facility] [address] [place], [place] [id number] Donny Vergara MD Discharge Disposition: Home or Self Care from Last 3 Months Social History Tobacco Use Types Packs/Day Years Used Date Smoking Tobacco: Never Assessed Estimated Date of Delivery Comme nts Yes 01/10/2025 Based on last me nstrual period of 04/05/2024 Sex and Gender Information Value Date Recorded Sex Assigned at Not on file Legal Sex Female 10:56 AM CDT Gender Identity Not on file Sexual Orientation Not on file Plan of Treatment Health Maintenance Due Date Last Done Comments PAP SMEAR 1990 HIV SCREENING 2007 HEPATITIS C SCREENING 05/11/2010 DTAP/TDAP/TD VACCINES (1 - Tdap) 2011 HEPATITIS B VACCINE (1 of 3 - 19+ 3-dose series) 2011 COVID-19 VACCINE (1 - 2023-2 5 season) 2024 DEPRESSION SCREENING 07/19/2024 OB-ONE HOUR GLUCOSE 10/04/2024 OB-TDAP CURRENT 10/11/2024 OB-RHOGAM INJECTION 10/18/2024 OB-GROUP B STREP SCREEN 12/06/2024 INFLUENZA VACCINE (Season Ended) 2025 04/20/20 17 ZOSTER VACCINE (1 of 2) 2042 HIB VACCINE Aged Out No longer eligi ble based on patient's age to complete this topic HPV VACCINE Aged Out No longer eligi ble based on patient's age to complete this topic MENINGOCOCCAL (Group B) VACC INE SHARED DECISION-MAKING Aged Out No longer eligibl e based on patient's age to complete this topic MENINGOCOCCAL GROUPS A/C/Y/W VACCINE Aged Out No longer eligible b ased on patient's age to complete this topic PNEUMOCOCCAL VACCINE Aged Out No long er eligible based on patient's age to complete this topic Respiratory Syncytial Virus (RSV) Vaccine Pt: or over 60 yrs (No Doses Required) Completed Insurance [facility]
== END 2024-11-27 11:48 | disposition home or self-care (01) ==
PROVIDERS: PCP Emergency Medicine; Visit Provider Nurse Practitioner Family
DX: R06.2 Wheezing (principal); R06.02 Shortness of breath
CPT/HCPCS: 71046

== ENCOUNTER 2024-11-29 09:44 | Outpatient (CLI) | payer OTHER, SELFPAY ==
--- OUTSIDE RECORDS SUMMARY | 2024-11-29 10:04 | XMS_ITS | Clinical Summary ---
Author Organization [facility] Address [address] [place] [address] Care Team Providers Care Service Captain Name Role Phone Unavailable Primary Care Provider Unavailabl e Source Comments [facility],non-owned Affiliates and Associated Physician Practices is amultiple site organization consisting of ambulatory clinics and hospital sitesin [place], [place], [place] and [place]. This disclosure is being madepursuant to the Care Everywhere program and may not contain all information available regarding this patient. Last updated 18.[facility] Allergies Active Allergy Reactions Criticality Noted Date Comments Latex Rash Medium 11/28/2024 Encounters Date Type Department Care Team Description 11/27/2024 Travel from Last 3 Months Social History Tobacco [...] Orientation Not on file Plan of Treatment Upcoming Encounters Date Type Department Care Team (Late st Contact Info) Description 12/04/2024 2:30 PM CDT Hospital Encounter [facility] Maternal & Care [address] [place] [address] Health Maintenance Due Date Last Done Comments PAP SMEAR 1990 HIV SCREENING 2007 HEPATITIS C SCREENING 05/11/2010 DTAP/TDAP/TD VACCINES (1 - Tdap) 2011 HEPATITIS B VACCINE (1 of 3 - 19+ 3-dose series) 2011 COVID-19 VACCINE (2023-2 5 season) 2024 DEPRESSION SCREENING 07/19/2024 OB-ONE [...] 60 yrs (No Doses Required) Completed Insurance [facility]
--- OUTSIDE RECORDS SUMMARY | 2024-11-29 10:04 | XMS_ITS | Clinical Summary ---
Author Organization [facility] Address [address] [place] [phone] Care Team Providers Care Grease Maker Name Role Phone Unavailable Primary Care Provider [...] - 10/12/2024 11:59 PM CDT Hospital Encounter [facility] Justice Phan [address] [place] [phone] Trina Gonzalez MD Discharge Disposition: Home or Self Care 09/23/2024 External Device Data STL ABSTRACTION Provider, Abstract 09/22/2024 External Device Data STL ABSTRACTION Provider, Abstract 09/20/2024 External Device Data STL ABSTRACTION Provider, Abstract 09/14/2024 10:09 AM SOLID WASTE MANAGER - 09/14/2024 11:59 PM SOLID WASTE MANAGER Hospital Encounter [facility] Justice Phan [address] [place] [phone] Buzz Bowens MD Discharge Disposition: Home or [...] WKS SINGLE GEST Routine 09/14/2024 11:17 AM SOLID WASTE MANAGER screening for malformation using ultrasonics from Last 3 Months Results * US OB FOLLOW UP PER FETUS (10/12/2024 11:10 AM CDT) Anatomical Region Laterality Modality Pelvis Ultrasound 10/12/2024 10:3 9 AM CDT Narrative 10/12/2024 11:19 AM CDT STL FOLLOW UP ----- Pat. Name: MARCI ADAM Study Date: 10/12/2024 10:39am Pat. NO: [id number] Referring MD: BUZZ BOWENS MD Site: [facility] Solderer: Tarah Hess RDMS : 1990 Age: 34 ----- INDICATION ----- Maternal Obesity (BMI>40) Complicating Screening Follow-Up 4ch, palate, spine, R kidney CODING ----- Diagnoses Z3A.27: Weeks of gestation O99.212: Obesity complicating Z3A.27: Weeks of gestation Z36.2: Encounter for other screening follow-up O99.212: Obesity complicating Procedures 71476: Ultrasound, uterus, real time with image documentation, [...] 2 lb 6 oz EFW by Hadlock ([id number]) Head / Face / Neck Biometry: Vice President Business Development 2.1 mm Extremities / Bony Struc Biometry: [...] and date of were verified by the primary operator prior to the exam IMPRESSION ----- [...] Pat. Name:Roman ADAM Date:10/12/2024 10:39am Pat. NO: [id number] MD:BUZZ BOWENS MD [facility]Tarah AugustLondon GÓMEZ :1990Age:34 ----- INDICATION ----- Maternal Obesity (BMI>40) Complicating Screening Follow-Up 4ch, palate, spine, Rkidney CODING ----- Diagnoses Z3A.27: Weeks of gestation O99.212: Obesity complicating Z3A.27: Weeks of gestation Z36.2: Encounter for other screeningfollow-up O99.212: Obesity complicating Procedures 40626: Ultrasound, uterus, real time withimage documentation, follow up, transabdominal approach per fetus HISTORY ----- OB History 3. Para 2 MATERNAL ASSESSMENT ----- Physical Exam Initial weight 150 kg, 330 lb. Initial BMI 51.69kg/m METHOD ----- Transabdominal ultrasound examination ----- [place] . Number of fetuses: 1 DATING ----- GA by prior [id number] w + 1 d MC by prior [...] 2 lb 6 oz EFW by Hadlock ([id number]) Head / Face / Neck Biometry: Vice President Business Development 2.1mm Extremities / Bony Struc Biometry: FL [...] and date of were verified by the primary operator prior tothe exam IMPRESSION ----- IUP [...] 14+ WKS SINGLE GEST (09/14/2024 11:17 AM SOLID WASTE MANAGER) Anatomical Region Laterality Modality Pelvis Ultrasound 09/14/2024 10:1 7 AM SOLID WASTE MANAGER Narrative 09/14/2024 11:22 AM SOLID WASTE MANAGER STL COMP ----- Pat. Name: MARCI ADAM Study Date: 09/14/2024 10:17am Pat. NO: [id number] Referring MD: BUZZ BOWENS MD Site: [facility] Solderer: Tarah Hess RDMS : 1990 Age: 34 ----- INDICATION ----- Anatomy Survey Maternal Obesity (BMI>40) Complicating CODING ----- Diagnoses Z3A.23: Weeks of gestation O99.212: Obesity complicating Z36.3: Encounter for screening for malformations Procedures 61470: Ultrasound, uterus, real time with image documentation, [...] 1 lb 7 oz EFW by Hadlock ([id number]) Head / Face / Neck Biometry: Vice President Business Development 5.3 mm CM 5.5 mm 42% Nicolaides [...] Thorax RVOT view. LVOT view. 3-vessel view. 8-lcwtis-muqpzrj view. Situs. Aortic arch view. Ductal arch [...] and date of were verified by the primary operator before the exam IMPRESSION ----- IUP [...] Pat. Name:Roman ADAM Date:09/14/2024 10:17am Pat. NO: [id number] MD:BUZZ BOWENS MD [facility] RDMS :1990Age:34 ----- INDICATION ----- Anatomy Survey Maternal Obesity (BMI>40) Complicating CODING ----- Diagnoses Z3A.23: Weeks of gestation O99.212: Obesity complicating Z36.3: Encounter for screening formalformations Procedures 15837: Ultrasound, uterus, real time withimage documentation, and maternal evaluation plus detailed anatomic examination,transabdominal approach HISTORY ----- OB History 3. Para 2 MATERNAL ASSESSMENT ----- Physical Exam Initial weight 150 kg, 330 lb. Initial BMI 51.69kg/m METHOD ----- Transabdominal ultrasound examination ----- [place]ock . Number of fetuses: 1 DATING ----- Method of dating:based on stated MC GA by prior [id number] w + 1 d MC by prior [...] 1 lb 7 oz EFW by Hadlock ([id number]) Head / Face / Neck Biometry: Vice President Business Development 5.3 mm CM 5.5 mm 42%Nicolaides Inner [...] / Thorax RVOT view. LVOT view. 3-vessel view.7-kengup-gghprat view. Situs. Aortic arch view. Ductal arch [...] and date of were verified by the primary operator beforethe exam IMPRESSION ----- IUP at [...]
--- OUTSIDE RECORDS SUMMARY | 2024-11-29 10:04 | XMS_ITS | Clinical Summary ---
Author Organization [facility] Address [address] [place] [address] Care Team Providers Care Pastry Supervisor Name Role Phone Jeremias Sutherland MD Primary Care Provider [phone] Allergies Active Allergy Reactions Criticality Noted Date Comments Latex Rash Low 10/23/2021 Seasonal Runny Nose,Eyes Water & Itch Low 022 Medications vitamin 27-1 MG Tab tablet Take 1 tablet by mouth daily. Active Active Problems Problem Noted Date Diagnosed Date History of section 11/27/2021 ([facility]) 11/22/2021 Gestational HTN ([facility]) 11/22/2021 Comments Yes Immunizations Immunization Administration Dates [...] Comments Blood Pressure 118/67 06/19/2024 12:01 AM MARKETING PROJECT LEAD Pulse 80 06/18/2024 11:59 PM MARKETING PROJECT LEAD Temperature 36.4 C (97.6 F) 06/18/2024 11:59 PM MARKETING PROJECT LEAD Respiratory Rate 18 06/18/2024 11:59 PM MARKETING PROJECT LEAD Oxygen Saturation 100% 06/19/2024 12:01 AM MARKETING PROJECT LEAD Inhaled Oxygen Concentration - - Weight 151 kg (332 lb 14.3 oz) 06/18/2024 11:59 PM MARKETING PROJECT LEAD Height 170.2 cm (5' 7 ) 06/18/2024 11:59 PM MARKETING PROJECT LEAD Body Mass Index 52.14 06/18/2024 11:59 PM MARKETING PROJECT LEAD Plan of Treatment Health Maintenance Due Date [...] - 2023-2 5 season) 2024 PHQ-2 (Physician [place]) 07/19/2024 DTaP, Tdap and Td Vaccines ( [...] patient's age to complete this topic Insurance [employer] Advance Directives * Full Code (Latest Code Status on File) Date Activated Date Inactivated Comments 11/27/2021 9:25 AM 11/29/2021 3:42 PM * Full Code Date Activated Date Inactivated Comments 11/22/2021 12:01 PM 11/23/2021 11:29 AM * Full Code Date Activated Date Inactivated Comments 11/19/2021 12:13 PM 11/19/2021 3:01 PM Care Teams Pastry Supervisor Relationship Specialty Start Date End Date Jeremias Sutherland MD [address] [place] [address] PCP - General EMERGENCY MEDICINE 05/15/23
--- OUTSIDE RECORDS SUMMARY | 2024-11-29 10:04 | XMS_ITS | Encounter Summary ---
Author Organization [facility] Address [address] [place] [address] Care Team Providers Care Application Support Administrator Name Role Phone Rachel Valenzuela MD Primary Care Provider + Nolvia Jonas MD Primary Care Provider [phone] Jeremias Sutherland MD Primary Care Provider [phone] Encounter Details Date Type Department Care Team (Late st Contact Info) Description 10/17/2014 Abstract [facility] CONVERSION [address] [place] [address] , Subha Shannon MD Social History Tobacco [...] on filedocumented in this encounter Care Teams Application Support Administrator Relationship Specialty Start Date End Date Rachel Valenzuela MD PCP - General FAMILY PRACTICE 07/15/21 10/22/21 [place] [address] [facility] [address] [place] [address] PCP - General FAMILY PRACTICE 10/23/21 05/14/23 Jeremias Sutherland MD [address] [place] [address] PCP - General EMERGENCY MEDICINE 05/15/23 documented as of this encounter
[2024-11-29 11:05] LABS: Hemoglobin 10.4 g/dL (12.0-15.0); Mean Corpuscular HGB Conc 31.5 g/dl (32-36); Mean Corpuscular Hemoglobin 27.1 pg (26-34); Mean Corpuscular Volume 85.9 fl (80-100); Mean Platelet Volume 9.6 fl (7.4-10.4); Platelet Count Result 262 k/mm3 (150-375); Red Blood Count 3.84 M/mm3 (4.2-5.4); Red Cell Distribution Width 14.9 % (11.5-14.5); White Blood Count 9.2 K/mm3 (4.5-10.0)
[2024-11-29 11:15] LABS: Glucose 1 Hour PP 50gm Dose 164 mg/dL
[2024-11-29 11:56] LABS: HIV 1/2 Ab P24 Ag Result Negative (Negative)
[2024-11-29 12:03] LABS: Syphilis IgG/IgM Antibody Negative (Negative)
== END 2024-11-29 09:45 | disposition home or self-care (01) ==
LOC: ANHLAB 09:47
PROVIDERS: Referring Provider Nurse Practitioner Family; Visit Provider Nurse Practitioner Obstetrics & Gynecology
DX: Z34.90 Encounter for supervision of normal pregnancy, unspecified, unspecified trimester (principal); Z3A.00 Weeks of gestation of pregnancy not specified
CPT/HCPCS: 36415; 82947; 85027; 86593; 86703; G0432

== ENCOUNTER 2024-12-04 10:19 | Outpatient (CLI) | payer OTHER, SELFPAY ==
[2024-12-04 10:54] LABS: Glucose Fasting Gestational 82 mg/dL (>/=95)
--- OUTSIDE RECORDS SUMMARY | 2024-12-04 10:55 | XMS_ITS | Encounter Summary ---
Author Organization [facility] Address [address] [facility] [place] [address] Care Team Providers Care Shop Worker Name Role Phone Unavailable Primary Care Provider Unavailabl e Reason for Referral * (Routine) - Open Specialty Diagnoses / Procedures Referred By Contac t Referred To Contact Diagnoses 33 weeks gestation of (HCC) Other obesity affecting in third trimester (HCC) Encounter for ultrasound to assess growth (HCC) Encounter for screening (HCC) Procedures BIOPHYSICAL PROFILE W NST Buzz [place] MD [address] [facility] [address] [facility] [address] [place] [address] Phone: tel: fax: Referral ID Status Reason Start Date Expiration Date Visits Re quested Visits Authorized [id number] Open 11/28/2024 11/28/2025 1 1 Reason for Visit * Reason Comments Ultrasound Non-stress Test Biophysical Profile Encounter Details Date Type Department Care Team (Late st Contact Info) Description 12/04/2024 2:30 PM CDT Hospital Encounter [facility] [address] [place], [place] [id number] Emma Ang MD [address] [facility] [address] [place] [address] Social History Tobacco Use Types Packs/Day Years [...] as of this encounter Plan of Treatment Scheduled Orders Name Type Priority Associated Diagnoses Order Schedule BIOPHYSICAL PROFILE W NST MATRNL MED Routine 33 weeks gestation of (HCC) Other obesity affecting in third trimester ([facility]) Encounter for ultrasound to assess growth ([facility]) Encounter for screening ([facility]) 1 Occurrences starting 11/28/2024 until 11/28/2025 documented as of this encounter Visit Diagnoses Diagnosis 33 weeks gestation of (HCC)- Primary state, incidental Other obesity affecting in third trimester ([facility]) Encounter for ultrasound to assess growth ([facility]) Encounter for screening ([facility]) documented in this encounter
--- OUTSIDE RECORDS SUMMARY | 2024-12-04 10:55 | XMS_ITS | Clinical Summary ---
Author Organization [facility] Address [address] [place] [address] Care Team Providers Care Fruit Express Agent Name Role Phone Jeremias Sutherland MD Primary Care Provider Allergies Active Allergy Reactions Criticality Noted Date Comments Latex Rash Low 10/23/2021 Seasonal Runny Nose,Eyes Water & Itch Low 022 Medications vitamin 27-1 MG Tab tablet Take 1 tablet by mouth daily. Active Active Problems Problem Noted Date Diagnosed Date History of section 11/27/2021 ([facility]) 11/22/2021 Gestational HTN ([facility]) 11/22/2021 Comments Yes Immunizations Immunization [...] Comments Blood Pressure 118/67 06/19/2024 12:01 AM ACCOUNTANCY PROFESSOR Pulse 80 06/18/2024 11:59 PM ACCOUNTANCY PROFESSOR Temperature 36.4 C (97.6 F) 06/18/2024 11:59 PM ACCOUNTANCY PROFESSOR Respiratory Rate 18 06/18/2024 11:59 PM ACCOUNTANCY PROFESSOR Oxygen Saturation 100% 06/19/2024 12:01 AM ACCOUNTANCY PROFESSOR Inhaled Oxygen Concentration - - Weight 151 kg (332 lb 14.3 oz) 06/18/2024 11:59 PM ACCOUNTANCY PROFESSOR Height 170.2 cm (5' 7 ) 06/18/2024 11:59 PM ACCOUNTANCY PROFESSOR Body Mass Index 52.14 06/18/2024 11:59 PM ACCOUNTANCY PROFESSOR Plan of Treatment Health Maintenance Due Date [...] - 2023-2 5 season) 2024 PHQ-2 (Physician [place]) 07/19/2024 DTaP, Tdap and Td Vaccines ( [...] patient's age to complete this topic Insurance [employer] Advance Directives * Full Code (Latest Code Status on File) Date Activated Date Inactivated Comments 11/27/2021 9:25 AM 11/29/2021 3:42 PM * Full Code Date Activated Date Inactivated Comments 11/22/2021 12:01 PM 11/23/2021 11:29 AM * Full Code Date Activated Date Inactivated Comments 11/19/2021 12:13 PM 11/19/2021 3:01 PM Care Teams Fruit Express Agent Relationship Specialty Start Date End Date Jeremias Sutherland MD [address] [place] [address] PCP - General EMERGENCY MEDICINE 05/15/23
--- OUTSIDE RECORDS SUMMARY | 2024-12-04 10:55 | XMS_ITS | Clinical Summary ---
Author Organization [facility] Address [address] [facility] [place] [address] Care Team Providers Care Utilization Management Nurse Name Role Phone Unavailable Primary Care Provider Unavailabl e Source Comments [facility],non-owned Affiliates and Associated Physician Practices is amultiple site organization consisting of ambulatory clinics and hospital sitesin [place], [place], [place] and [place]. This disclosure is being madepursuant to the Care Everywhere program and may not contain all information available regarding this patient. Last updated 18.[facility] Allergies Active Allergy Reactions Criticality Noted Date Comments Latex Rash Medium 11/28/2024 Encounters Date Type Department Care Team Description 12/04/2024 2:30 PM CDT Hospital Encounter [facility] [address] [place] [address] Emma Ang MD 11/27/2024 Travel from Last 3 Months Social [...] Description 12/04/2024 2:30 PM CDT Hospital Encounter [facility] [address] [place] [address] Emma Ang MD [address] [facility] 4[address] [place] [phone] Health Maintenance Due Date Last Done Comments [...] 60 yrs (No Doses Required) Completed Insurance [facility]
--- OUTSIDE RECORDS SUMMARY | 2024-12-04 10:55 | XMS_ITS | Encounter Summary ---
Author Organization [facility] Address [address] [place] [address] Care Team Providers Care Arranging Funeral Director Name Role Phone Rachel Valenzuela MD Primary Care Provider + Nolvia Jonas MD Primary Care Provider [phone] Jeremias Sutherland MD Primary Care Provider Encounter Details Date Type Department Care Team (Late st Contact Info) Description 10/17/2014 Abstract [facility] CONVERSION [address] [place] [address] , Subha Shannon MD Social History Tobacco [...] on filedocumented in this encounter Care Teams Arranging Funeral Director Relationship Specialty Start Date End Date Rachel Valenzuela MD PCP - General FAMILY PRACTICE 07/15/21 10/22/21 [place] [address] [facility] [address] [place] [address] PCP - General FAMILY PRACTICE 10/23/21 05/14/23 Jeremias Sutherland MD [address] [place] [address] PCP - General EMERGENCY MEDICINE 05/15/23 documented as of this encounter
--- OUTSIDE RECORDS SUMMARY | 2024-12-04 10:55 | XMS_ITS | Clinical Summary ---
Author Organization [facility] Address [address] [place] [phone] Care Team Providers Care Screen Cutter And Trimmer Name Role Phone Unavailable Primary Care Provider [...] - 10/12/2024 11:59 PM CDT Hospital Encounter [facility] Justice Phan [address] [place] [phone] Trina Gonzalez MD Discharge Disposition: Home or Self Care 09/23/2024 External Device Data STL ABSTRACTION Provider, Abstract 09/22/2024 External Device Data STL ABSTRACTION Provider, Abstract 09/20/2024 External Device Data STL ABSTRACTION Provider, Abstract 09/14/2024 10:09 AM FOOD PREPARATION KITCHEN AIDE - 09/14/2024 11:59 PM FOOD PREPARATION KITCHEN AIDE Hospital Encounter [facility] Phan [address] [place] [phone] Buzz Bowens MD Discharge Disposition: Home or [...] WKS SINGLE GEST Routine 09/14/2024 11:17 AM FOOD PREPARATION KITCHEN AIDE screening for malformation using ultrasonics from Last 3 Months Results * US OB FOLLOW UP PER FETUS (10/12/2024 11:10 AM CDT) Anatomical Region Laterality Modality Pelvis Ultrasound 10/12/2024 10:3 9 AM CDT Narrative 10/12/2024 11:19 AM CDT STL FOLLOW UP ----- Pat. Name: MARCI ADAM Study Date: 10/12/2024 10:39am Pat. NO: [id number] Referring MD: BUZZ BOWENS MD Site: [facility] Sales Representative: Tarah Hess RDMS : 1990 Age: 34 ----- INDICATION ----- Maternal Obesity (BMI>40) Complicating Screening Follow-Up 4ch, palate, spine, R kidney CODING ----- Diagnoses Z3A.27: Weeks of gestation O99.212: Obesity complicating Z3A.27: Weeks of gestation Z36.2: Encounter for other screening follow-up O99.212: Obesity complicating Procedures 75623: Ultrasound, uterus, real time with image documentation, [...] 2 lb 6 oz EFW by Hadlock ([id number]) Head / Face / Neck Biometry: Irrigator Valve Pipe 2.1 mm Extremities / Bony Struc Biometry: [...] and date of were verified by the carburizing furnace operator prior to the exam IMPRESSION ----- [...] Pat. Name:Roman ADAM Date:10/12/2024 10:39am Pat. NO: [id number] MD:BUZZ BOWENS MD [facility]arah August[place] GÓMEZ :1990Age:34 ----- INDICATION ----- Maternal Obesity (BMI>40) Complicating Screening Follow-Up 4ch, palate, spine, Rkidney CODING ----- Diagnoses Z3A.27: Weeks of gestation O99.212: Obesity complicating Z3A.27: Weeks of gestation Z36.2: Encounter for other screeningfollow-up O99.212: Obesity complicating Procedures 87356: Ultrasound, uterus, real time withimage documentation, follow up, transabdominal approach per fetus HISTORY ----- OB History 3. Para 2 MATERNAL ASSESSMENT ----- Physical Exam Initial weight 150 kg, 330 lb. Initial BMI 51.69kg/m METHOD ----- Transabdominal ultrasound examination ----- Bullock . Number of fetuses: 1 DATING ----- GA by prior w + 1 d MC by prior [...] 2 lb 6 oz EFW by Hadlock ([id number]) Head / Face / Neck Biometry: Irrigator Valve Pipe 2.1mm Extremities / Bony Struc Biometry: FL [...] and date of were verified by the carburizing furnace operator prior tothe exam IMPRESSION ----- IUP [...] 14+ WKS SINGLE GEST (09/14/2024 11:17 AM FOOD PREPARATION KITCHEN AIDE) Anatomical Region Laterality Modality Pelvis Ultrasound 09/14/2024 10:1 7 AM FOOD PREPARATION KITCHEN AIDE Narrative 09/14/2024 11:22 AM FOOD PREPARATION KITCHEN AIDE STL COMP ----- Pat. Name: MARCI ADAM Study Date: 09/14/2024 10:17am Pat. NO: [id number] Referring MD: BUZZ BOWENS MD Site: [facility] Sales Representative: Tarah Hess RDMS : 1990 Age: 34 ----- INDICATION ----- Anatomy Survey Maternal Obesity (BMI>40) Complicating CODING ----- Diagnoses Z3A.23: Weeks of gestation O99.212: Obesity complicating Z36.3: Encounter for screening for malformations Procedures 42204: Ultrasound, uterus, real time with image documentation, [...] 1 lb 7 oz EFW by Hadlock ([id number]) Head / Face / Neck Biometry: Irrigator Valve Pipe 5.3 mm CM 5.5 mm 42% Nicolaides [...] Thorax RVOT view. LVOT view. 3-vessel view. 9-jguajn-oumcufx view. Situs. Aortic arch view. Ductal arch [...] and date of were verified by the carburizing furnace operator before the exam IMPRESSION ----- IUP [...] Pat. Name:Roman ADAM Date:09/14/2024 10:17am Pat. NO: [id number] MD:BUZZ BOWENS MD [facility] RDMS :1990Age:34 ----- INDICATION ----- Anatomy Survey Maternal Obesity (BMI>40) Complicating CODING ----- Diagnoses Z3A.23: Weeks of gestation O99.212: Obesity complicating Z36.3: Encounter for screening formalformations Procedures 09679: Ultrasound, uterus, real time withimage documentation, and maternal evaluation plus detailed anatomic examination,transabdominal approach HISTORY ----- OB History 3. Para 2 MATERNAL ASSESSMENT ----- Physical Exam Initial weight 150 kg, 330 lb. Initial BMI 51.69kg/m METHOD ----- Transabdominal ultrasound examination ----- [place]ock . Number of fetuses: 1 DATING ----- Method of dating:based on stated MC GA by prior [id number] w + 1 d MC by prior [...] 1 lb 7 oz EFW by Hadlock ([id number]) Head / Face / Neck Biometry: Irrigator Valve Pipe 5.3 mm CM 5.5 mm 42%Nicolaides Inner [...] / Thorax RVOT view. LVOT view. 3-vessel view.9-zckntf-xossxpa view. Situs. Aortic arch view. Ductal arch [...] and date of were verified by the carburizing furnace operator beforethe exam IMPRESSION ----- IUP at [...]
[2024-12-04 12:14] LABS: Glucose 1 Hour Gest 180 mg/dL (>/=180)
[2024-12-04 13:17] LABS: Glucose 2 Hour Gest 168 mg/dL (>/= 155)
[2024-12-04 14:31] LABS: Glucose 3 Hour Gest 102 mg/dL (>/=140)
== END 2024-12-04 10:20 | disposition home or self-care (01) ==
LOC: ANHLAB 10:20
PROVIDERS: Visit Provider Nurse Practitioner Obstetrics & Gynecology
DX: O99.810 Abnormal glucose complicating pregnancy (principal); Z3A.00 Weeks of gestation of pregnancy not specified
CPT/HCPCS: 36415; 82951; 82952

== ENCOUNTER 2024-12-14 14:12 | Outpatient (CLI) | payer OTHER, SELFPAY ==
[2024-12-14] VITALS (10 sets, daily range): BP systolic 99–139; BP diastolic 56–84; PULSE 94–108; RESP 16–23; TEMP 36.4–36.8; O2SAT 97–99
--- NOTE | ~2024-12-14 | CT_ITS ---
CTA chest PE protocol Ordering provider: Wicho Crowley MD History: 34 years Female with . shortness of brath, eval PE, Pt is . Comparison: None. Technique: CT angiogram chest was performed following timed intravenous injection of contrast. Thin s lice axial images and reformatted coronal images were obtained. Three dimensional reformatted images of the chest were also obtained using a [employer] workstation. . Automated exposure control and iterati ve reconstruction technique were employed. The dose-length product was 1096.43 mGy-cm. 100 mL Omnipaque 350 was given IV. Findings: PULMONARY ARTERIES: No pulmonary embolus. VISUALIZED THORACIC INLET: Normal. MEDIASTINUM: Aorta/coronary arteries: Mild atheromatous disease. Heart/other: The heart is not enlarged. Lymph nodes: No mediastinal or hilar adenopathy. LUNGS: 3 enlarged appearance is seen in the right lower lobe which may indicate early pneumonia. Follow-up a dvised. No pulmonary nodules or masses. No effusions. No pneumothorax. VISUALIZED UPPER ABDOMEN: Enlarged uterus with . Small sliding hiatus hernia. Otherwise, the visualized upper abdomen is normal. MUSCULOSKELETAL: Soft tissues: The superficial soft tissues are normal. Bones: Normal spine. IMPRESSION: 1. No pulmonary embolism. 2. Tree-in-bud appearance seen in the right lower lobe posteromedially which may indicate early pneu monia. Follow-up advised. Reviewed, dictated and finalized at location A. IMPRESSION: 1. No pulmonary embolism. 2. Tree-in-bud appearance seen in the right lower lobe posteromedially which m ay indicate early pneumonia. Follow-up advised.
--- NOTE | ~2024-12-14 | US_ITS ---
BILATERAL LOWER EXTREMITY VENOUS ULTRASOUND Ordering provider: Marcia Lay PA-C History: . edema, concern for PE, . Comparison: None. FINDINGS: RIGHT LOWER EXTREMITY VEINS: --COMMON FEMORAL: Patent and free of thrombus. Normal compressibility, phasic flow and augmentation. --PROXIMAL SUPERFICIAL FEMORAL: Patent and free of thrombus. Normal compressibility, phasic flow and augmentation. --DISTAL SUPERFICIAL FEMORAL: Patent and free of thrombus. Normal compressibility, phasic flow and au gmentation. --POPLITEAL: Patent and free of thrombus. Normal compressibility, phasic flow and augmentation. --POSTERIOR TIBIAL: Patent and free of thrombus. Normal compressibility, phasic flow and augmentation . LEFT LOWER EXTREMITY VEINS: --COMMON FEMORAL: Patent and free of thrombus. Normal compressibility, phasic flow and augmentation. --PROXIMAL SUPERFICIAL FEMORAL: Patent and free of thrombus. Normal compressibility, phasic flow and augmentation. --DISTAL SUPERFICIAL FEMORAL: Patent and free of thrombus. Normal compressibility, phasic flow and au gmentation. --POPLITEAL: Patent and free of thrombus. Normal compressibility, phasic flow and augmentation. --POSTERIOR TIBIAL: Patent and free of thrombus. Normal compressibility, phasic flow and augmentation . IMPRESSION: Negative bilateral lower extremity venous US. No deep vein thrombosis. Reviewed, dictated and finalized at location A.
--- NOTE | ~2024-12-14 | US_ITS ---
LIMITED OBSTETRIC ULTRASOUND Ordering provider: Buzz Dhillon MD History: . chest pressure and SOB . Comparison: None. FINDINGS: Longitudinal lie. PRESENTATION: Breech. PLACENTAL LOCATION: Posterior. No previa. HEART RATE: 129 bpm (normal is between 110 to 160 bpm). AMNIOTIC FLUID INDEX: 21.6 cm. 5th percentile is 7.7 cm. 95th percentile is 24.9 cm. Largest vertica l pocket is 7.5 cm. normal (DWAYNE between 5-25 cm in from 20-35 weeks gestation is considered normal). IMPRESSION: Single live fetus with breech presentation. Normal amniotic fluid index. Reviewed, dictated and finalized at location A.
--- NOTE | 2024-12-14 14:17 | ECG_ITS ---
Test Date: 2024-12-14 15:45:29 Measurements Intervals [place] Rate: 96 P: 3 TN: 149 QRS: 27 QRSD: 89 T: 6 QT: 326 QTc: 412 Interpretive Statements SINUS RHYTHM No previous ECG available for comparison Electronically Signed On 12-15-2024 11:09:33 CDT by Shara Rabago M.D.
--- NOTE | 2024-12-14 15:20 | ED_ITS ---
HPI - Chest Pain General Chief Complaint: Chest Pain <Marcia Lay PA-C - Last Filed: 12/15/24 10:20> Stated Complaint: chest pain x 1 month <Marcia Lay PA-C - Last Filed: 12/15/24 10:20> Time Seen by Provider: 12/14/24 15:20 <Marcia Lay PA-C - Last Filed: 12/15/24 10:20> Focused HPI: This is a 34 year old female that presents to the ER for chest pain. Ongoing over the last month. Reports associated cough. Her doctor was concerned for PE. She is currently 36 weeks , her OB is Dr. Dhillon. She sent her in from her appointment today to rule out PE. Reports some shortness of breath and swelling in her legs. No previous history of DVT/PE. GENERAL: Well-appearing, well-nourished, and in no acute distress. HEAD: Normocephalic, atraumatic. CHEST: Clear to auscultation. ?No respiratory distress. HEART: Regular rate and rhythm.? NEURO: ?Alert and oriented x3. Patient screened in triage and initial orders placed.? ?Additional care and disposition to be based upon?diagnostic testing and treatment. <Marcia Lay PA-C - Last Filed: 12/15/24 10:20> History of Present Illness HPI narrative: patient 34-year-old female presents emergency department with chief complaint of chest pain. Patient reports he has been having on going discomfort for the last month reports that she has had a cough patient reports she is 36 weeks and followed by OBGYN doctor dhillon. Patient reports that she was sent over to rule out pulmonary embolism <Wicho Crowley MD - Last Filed: 12/14/24 18:14> Related Data Allergies/Adverse Reactions: Allergies Allergy/AdvReac Type Severity Reaction Status Date / Time latex Allergy Rash Verified 12/14/24 19:48 <Marcia Lay PA-C - Last Filed: 12/15/24 10:20> Review of Systems 2 Review of Systems: A 10 system review of systems was completed on the patient and is negative except for what is stated in the HPI. Nursing and ancillary documentation was reviewed. <Wicho Crowley MD - Last Filed: 12/14/24 18:14> Exam 2 Narrative: GENERAL: Well-appearing, well-nourished, and in no acute distress. HEAD: Normocephalic, atraumatic. EYES: PERRLA and EOMI. ENT: Nares clear, no rhinorrhea or epistaxis. Mucous membranes moist. NECK: Supple. CHEST: Clear to auscultation. No respiratory distress. HEART: Regular rate and rhythm. No murmur heard. Normal peripheral pulses. ABDOMEN: Soft, nontender, nondistended, normal active bowel sounds.Gravid EXTREMITIES: Normal range of motion. No edema. SKIN: Warm, dry, no rash. NEURO: No focal deficits. Alert and oriented x3. PSYCH: Normal mood and affect. <Wicho Crowley MD - Last Filed: 12/14/24 18:14> Course Vital Signs Vital signs: Vital Signs Temperature 98.2 F 12/14/24 14:14 Pulse Rate 108 H 12/14/24 14:14 Respiratory Rate 16 12/14/24 14:14 Blood Pressure 126/79 12/14/24 14:14 Pulse Oximetry 98 12/14/24 14:14 Temperature 97.6 F 12/14/24 18:30 Pulse Rate 96 12/14/24 19:25 Respiratory Rate 19 12/14/24 18:30 Blood Pressure 107/56 L 12/14/24 19:25 Pulse Oximetry 98 12/14/24 19:15 Oxygen Delivery Room Air 12/14/24 17:55 <Macria Lay PA-C - Last Filed: 12/15/24 10:20> Vital Signs Temperature 98.2 F 12/14/24 14:14 Pulse Rate 108 H 12/14/24 14:14 Respiratory Rate 16 12/14/24 14:14 Blood Pressure 126/79 12/14/24 14:14 Pulse Oximetry 98 12/14/24 14:14 Temperature 97.6 F 12/14/24 18:30 Pulse Rate 96 12/14/24 19:25 Respiratory Rate 19 12/14/24 18:30 Blood Pressure 107/56 L 12/14/24 19:25 Pulse Oximetry 98 12/14/24 19:15 Oxygen Delivery Room Air 12/14/24 17:55 <Wicho Crowley MD - Last Filed: 12/14/24 18:14> MDM - Chest Pain MDM Narrative Medical decision making narrative: the patient was sent to the emergency department by primary of the EKG of obtaining CT PE protocol. Laboratory studies were obtained on the patient showed white count 12.1 coags were within normal limits D-dimer was elevated at 1.42 uric acid was negative liver enzymes showed a normal bilirubin AST ALT were normal alk-phos was 130 troponin was negative lipase was normal abuse 3.5 CTA chest showed no evidence of pulmonary embolism but did show tree in bud pattern could showed early pneumonia venous duplex of lower extremities showed no evidence of DVT patient will be started on azithromycin the case was discussed with patient's OBGYN who wall take the patient over to Labor and delivery and perform a NST <Wicho Crowley MD - Last Filed: 12/14/24 18:14> Lab Data Result diagrams: 12/14/24 15:33 12/14/24 15:33 <Marcia Lay PA-C - Last Filed: 12/15/24 10:20> Labs: Lab Results 12/14/24 12/14/24 12/14/24 Range/Units 15:33 16:52 18:24 WBC 12.1 H (4.5-10.0) K/mm3 RBC 4.19 L (4.2-5.4) M/mm3 Hgb 11.2 L (12.0-15.0) g/dL Hct 35.5 L (37.0-47.0) % MCV 84.7 (80-100) fl MCH 26.7 (26-34) pg MCHC 31.5 L (32-36) g/dl RDW 14.6 H (11.5-14.5) % Plt Count 340 (150-375) k/mm3 MPV 9.6 (7.4-10.4) fl Immature Gran % (Auto) 0.2 (0-0.5) % Neut % (Auto) 77.5 H (45.5-73.1) % Lymph % (Auto) 14.9 L (18.3-44.2) % [place] % (Auto) 5.3 (2.6-8.5) % Eos % (Auto) 1.9 (0-4.4) % Baso % (Auto) 0.2 (0.2-1.2) % Lymph # (Auto) 1.81 (0.9-3.2) K/mm3 [place] # (Auto) 0.6 (0.1-0.6) K/mm3 Eos # (Auto) 0.2 (0-0.3) K/mm3 Baso # (Auto) 0.0 (0.0-0.1) K/mm3 Abs Immat Gran (auto) 0.03 (0.00-0.031) K/mm3 Absolute Neuts (auto) 9.4 H (1.3-6.7) K/mm3 Absolute Nucleated RBC 0.000 (0.0-0.012) K/mm3 Nucleated RBC % 0.0 (0.0-0.2) % PT 15.2 H (11.1-14.7) Seconds INR 1.2 APTT > 200.0 H* 27.6 (22.3-36.8) Seconds D-Dimer 1.42 H (<0.48) ug/mL Sodium 134 L (137-145) mmol/L Potassium 3.9 (3.4-5.0) mmol/L Chloride 107 (98-107) mmol/L Carbon Dioxide 22 (22-30) mmol/L Anion Gap 5 (4-12) mmol/L BUN 4 L (7-17) mg/dL Creatinine 0.48 L (0.7-1.0) mg/dL Estim Creat Clear Calc 219 ml/min Estimated GFR > 60 (59 - ) Glucose 70 (65-110) mg/dL Uric Acid 4.8 (2.5-7.5) mg/dL Calcium 9.0 (8.4-10.2) mg/dL Total Bilirubin 0.4 (0.2-1.3) mg/dL AST 28 (14-36) U/L ALT 19 (6-35) U/L Alkaline Phosphatase 130 H (38-126) U/L Troponin I < 0.012 < 0.012 (0.000-0.034) ng/mL Total Protein 7.0 (6.3-8.2) g/dL Albumin 3.5 (3.5-5.1) g/dL Lipase 59 (23-300) U/L Urine Color Yellow (Yellow) Urine Appearance Clear (Clear) Urine pH 7.0 (5.0-9.0) Ur Specific [place] > 1.045 H (1.001-1.035) Urine Protein Trace (Negative) mg/dL Urine Glucose (UA) Negative (Negative) mg/dL Urine Ketones 2+ H (Negative) mg/dL Ur Blood (Man) Negative (Negative) Urine Nitrate Negative (Negative) Urine Bilirubin Negative (Negative) Urine Urobilinogen 1.0 (<2.0) mg/dL Add Ur Microanalysis Reviewed Leukocyte Esterase Rfl Negative (Negative) KIKA/UL Urine RBC 0-2 (0-2) /hpf Urine WBC 0-5 (0-3) /hpf Ur Squamous Epith Cells Few (Few) /hpf Urine Bacteria 2+ H /hpf Urine Casts 0-2 U Random Total Protein < 5 mg/dL Urine Creatinine 105.2 mg/dL Protein/Creat Ratio 2 < 0.05 (0-0.20) mg/mg <Marcia Lay PA-C - Last Filed: 12/15/24 10:20> Lab Results 12/14/24 12/14/24 12/14/24 Range/Units 15:33 16:52 18:24 WBC 12.1 H (4.5-10.0) K/mm3 RBC 4.19 L (4.2-5.4) M/mm3 Hgb 11.2 L (12.0-15.0) g/dL Hct 35.5 L (37.0-47.0) % MCV 84.7 (80-100) fl MCH 26.7 (26-34) pg MCHC 31.5 L (32-36) g/dl RDW 14.6 H (11.5-14.5) % Plt Count 340 (150-375) k/mm3 MPV 9.6 (7.4-10.4) fl Immature Gran % (Auto) 0.2 (0-0.5) % Neut % (Auto) 77.5 H (45.5-73.1) % Lymph % (Auto) 14.9 L (18.3-44.2) % [place] % (Auto) 5.3 (2.6-8.5) % Eos % (Auto) 1.9 (0-4.4) % Baso % (Auto) 0.2 (0.2-1.2) % Lymph # (Auto) 1.81 (0.9-3.2) K/mm3 [place] # (Auto) 0.6 (0.1-0.6) K/mm3 Eos # (Auto) 0.2 (0-0.3) K/mm3 Baso # (Auto) 0.0 (0.0-0.1) K/mm3 Abs Immat Gran (auto) 0.03 (0.00-0.031) K/mm3 Absolute Neuts (auto) 9.4 H (1.3-6.7) K/mm3 Absolute Nucleated RBC 0.000 (0.0-0.012) K/mm3 Nucleated RBC % 0.0 (0.0-0.2) % PT 15.2 H (11.1-14.7) Seconds INR 1.2 APTT > 200.0 H* 27.6 (22.3-36.8) Seconds D-Dimer 1.42 H (<0.48) ug/mL Sodium 134 L (137-145) mmol/L Potassium 3.9 (3.4-5.0) mmol/L Chloride 107 (98-107) mmol/L Carbon Dioxide 22 (22-30) mmol/L Anion Gap 5 (4-12) mmol/L BUN 4 L (7-17) mg/dL Creatinine 0.48 L (0.7-1.0) mg/dL Estim Creat Clear Calc 219 ml/min Estimated GFR > 60 (59 - ) Glucose 70 (65-110) mg/dL Uric Acid 4.8 (2.5-7.5) mg/dL Calcium 9.0 (8.4-10.2) mg/dL Total Bilirubin 0.4 (0.2-1.3) mg/dL AST 28 (14-36) U/L ALT 19 (6-35) U/L Alkaline Phosphatase 130 H (38-126) U/L Troponin I < 0.012 < 0.012 (0.000-0.034) ng/mL Total Protein 7.0 (6.3-8.2) g/dL Albumin 3.5 (3.5-5.1) g/dL Lipase 59 (23-300) U/L Urine Color Yellow (Yellow) Urine Appearance Clear (Clear) Urine pH 7.0 (5.0-9.0) Ur Specific [place] > 1.045 H (1.001-1.035) Urine Protein Trace (Negative) mg/dL Urine Glucose (UA) Negative (Negative) mg/dL Urine Ketones 2+ H (Negative) mg/dL Ur Blood (Man) Negative (Negative) Urine Nitrate Negative (Negative) Urine Bilirubin Negative (Negative) Urine Urobilinogen 1.0 (<2.0) mg/dL Add Ur Microanalysis Reviewed Leukocyte Esterase Rfl Negative (Negative) KIKA/UL Urine RBC 0-2 (0-2) /hpf Urine WBC 0-5 (0-3) /hpf Ur Squamous Epith Cells Few (Few) /hpf Urine Bacteria 2+ H /hpf Urine Casts 0-2 U Random Total Protein < 5 mg/dL Urine Creatinine 105.2 mg/dL Protein/Creat Ratio 2 < 0.05 (0-0.20) mg/mg <Wicho Crowley MD - Last Filed: 12/14/24 18:14> Imaging Data Radiologist's impression: ITS Impressions Venous Doppler Study 12/14/24 16:26 IMPRESSION: Negative bilateral lower extremity venous US. No deep vein thrombosis. Chest CTA 12/14/24 17:41 IMPRESSION: 1. No pulmonary embolism. 2. Tree-in-bud appearance seen in the right lower lobe posteromedially which may indicate early pneumonia. Follow-up advised. Obstetrics Ultrasound 12/14/24 20:04 IMPRESSION: Single live fetus with breech presentation. Normal amniotic fluid index. <Marcia Lay PA-C - Last Filed: 12/15/24 10:20> Discharge Plan Discharge Clinical Impression: Atypical chest pain <Marcia Lay PA-C - Last Filed: 12/15/24 10:20> Patient Disposition: Other <Marcia Lay PA-C - Last Filed: 12/15/24 10:20> Condition: Stable <Marcia Lay PA-C - Last Filed: 12/15/24 10:20> Time of Disposition: 18:12 <Marcia Lay PA-C - Last Filed: 12/15/24 10:20> 18:12 <Wicho Crowley MD - Last Filed: 12/14/24 18:14>
[2024-12-14 15:43] LABS: Basophils Percent Auto 0.2 % (0.2-1.2); Eosinophils Absolute Auto 0.2 K/mm3 (0-0.3); Eosinophils Percent Auto 1.9 % (0-4.4); Hematocrit 35.5 % (37.0-47.0); Hemoglobin 11.2 g/dL (12.0-15.0); Immature Granulocyte Absolute 0.03 K/mm3 (0.00-0.031); Immature Granulocyte Percent A 0.2 % (0-0.5); Lymphocytes Absolute Auto 1.81 K/mm3 (0.9-3.2); Lymphocytes Percent Auto 14.9 % (18.3-44.2); Mean Corpuscular HGB Conc 31.5 g/dl (32-36); Mean Corpuscular Hemoglobin 26.7 pg (26-34); Mean Corpuscular Volume 84.7 fl (80-100); Mean Platelet Volume 9.6 fl (7.4-10.4); Monocytes Absolute Auto 0.6 K/mm3 (0.1-0.6); Monocytes Percent Auto 5.3 % (2.6-8.5); Neutrophils Absolute Auto 9.4 K/mm3 (1.3-6.7); Neutrophils Percent Auto 77.5 % (45.5-73.1); Platelet Count Result 340 k/mm3 (150-375); Red Blood Count 4.19 M/mm3 (4.2-5.4); Red Cell Distribution Width 14.6 % (11.5-14.5); White Blood Count 12.1 K/mm3 (4.5-10.0)
[2024-12-14 15:52] LABS: Alanine Aminotransferase 19 U/L (6-35); Albumin Level 3.5 g/dL (3.5-5.1); Alkaline Phosphatase 130 U/L (38-126); Anion Gap 5 mmol/L (4-12); Aspartate Amino Transferase 28 U/L (14-36); Bilirubin,Total 0.4 mg/dL (0.2-1.3); Blood Urea Nitrogen 4 mg/dL (7-17); Carbon Dioxide 22 mmol/L (22-30); Chloride 107 mmol/L (98-107); Estimated CRCL calculation 219 ml/min; Estimated Glomerular Filt Rate > 60; Glucose 70 mg/dL (65-110); Lipase 59 U/L (23-300); Potassium 3.9 mmol/L (3.4-5.0); Sodium 134 mmol/L (137-145)
[2024-12-14 15:55] LABS: INR 1.2; Prothrombin Time 15.2 Seconds (11.1-14.7)
[2024-12-14 16:05] LABS: Troponin I < 0.012 ng/mL (0.000-0.034)
[2024-12-14 16:09] LABS: D Dimer 1.42 ug/mL (<0.48); Partial Thromboplastin Time > 200.0 Seconds (22.3-36.8)
[2024-12-14 17:17] LABS: Partial Thromboplastin Time 27.6 Seconds (22.3-36.8); Uric Acid 4.8 mg/dL (2.5-7.5)
--- NOTE | 2024-12-14 18:14 | ECG_ITS ---
Test Date: 2024-12-14 18:22:54 Measurements Intervals [place] Rate: 110 P: 0 WA: 133 QRS: 40 QRSD: 77 T: 2 QT: 320 QTc: 433 Interpretive Statements SINUS TACHYCARDIA ABNORMAL RHYTHM ECG Compared to ECG 12/14/2024 15:45:29 Sinus rhythm no longer present Electronically Signed On 12-15-2024 15:01:59 CDT by Shara Rabago M.D.
[2024-12-14 18:21] LABS: Creatinine Urine 105.2 mg/dL
[2024-12-14 18:23] LABS: Add Urine Microscopic? YES; Appearance Urine Clear (Clear); Bacteria Urine 2+ /hpf; Bilirubin Urine Negative (Negative); Blood Urine Negative (Negative); Color Urine Yellow (Yellow); Glucose Urine UA Negative (Negative); Ketones Urine 2+ mg/dL (Negative); Leukocyte Esterase Ur Negative LEU/UL (Negative); Need Manual Microscopic Reviewed; Nitrate Urine Negative (Negative); Non Pathogenic Casts 0-2; Protein Urine Trace mg/dL (Negative); RBC Urine 0-2 /hpf (0-2); Specific Grav Ur > 1.045 (1.001-1.035); Squamous Epithelial Cell Urine Few /hpf (Few); WBC Urine 0-5 /hpf (0-3)
--- OUTSIDE RECORDS SUMMARY | 2024-12-14 18:41 | XMS_ITS | Clinical Summary ---
Author Organization [facility] Address [address] [place] [id number] Care Team Providers Care Novelties Sales Representative Name Role Phone Unavailable Primary Care Provider [...] - 10/12/2024 11:59 PM CDT Hospital Encounter [facility] Maternal and Health [facility] [address] [place] [address] Trina Gonzalez MD Discharge Disposition: Home or Self Care 09/23/2024 External Device Data STL ABSTRACTION Provider, Abstract 09/22/2024 External Device Data STL ABSTRACTION Provider, Abstract 09/20/2024 External Device Data STL ABSTRACTION Provider, Abstract from Last 3 Months Social History Tobacco [...] 9:27 AM CDT Height 170.2 cm (5' 7) 12/02/2022 9:27 AM CDT Body Mass Index [...] CDT Obesity affecting , antepartum, second trimester from Last 3 Months Results * US OB FOLLOW UP PER FETUS (10/12/2024 11:10 AM CDT) Anatomical Region Laterality Modality Pelvis Ultrasound 10/12/2024 10:3 9 AM CDT Narrative 10/12/2024 11:19 AM CDT STL FOLLOW UP ----- Pat. Name: MARCI ADAM Study Date: 10/12/2024 10:39am Pat. NO: [id number] Referring MD: OZ BOWENS MD Site: [place] Engraver: Tarah Hess RDMS : 1990 Age: 34 ----- INDICATION ----- Maternal Obesity (BMI>40) Complicating Screening Follow-Up 4ch, palate, spine, R kidney CODING ----- Diagnoses Z3A.27: Weeks of gestation O99.212: Obesity complicating Z3A.27: Weeks of gestation Z36.2: Encounter for other screening follow-up O99.212: Obesity complicating Procedures 87062: Ultrasound, uterus, real time with image documentation, [...] 2 lb 6 oz EFW by Hadlock ([id number]) Head / Face / Neck Biometry: Supervisor [employer] 2.1 mm Extremities / Bony Struc Biometry: [...] and date of were verified by the catalogue and special products manager prior to the exam IMPRESSION ----- IUP [...] Pat. Name:Roman ADAM Date:10/12/2024 10:39am Pat. NO: [id number] MD:OZ BOWENS [facility]Tar[facility] Hess RDMS :1990Age:34 ----- INDICATION ----- Maternal Obesity (BMI>40) Complicating Screening Follow-Up 4ch, palate, spine, Rkidney CODING ----- Diagnoses Z3A.27: Weeks of gestation O99.212: Obesity complicating Z3A.27: Weeks of gestation Z36.2: Encounter for other screeningfollow-up O99.212: Obesity complicating Procedures 86391: Ultrasound, uterus, real time withimage documentation, follow up, transabdominal approach per fetus HISTORY ----- OB History 3. Para 2 MATERNAL ASSESSMENT ----- Physical Exam Initial weight 150 kg, 330 lb. Initial BMI 51.69kg/m METHOD ----- Transabdominal ultrasound examination ----- Bullock . Number of fetuses: 1 DATING ----- GA by prior [id number] w + 1 d MC by prior [...] 2 lb 6 oz EFW by Hadlock ([id number]) Head / Face / Neck Biometry: Supervisor [employer] 2.1mm Extremities / Bony Struc Biometry: FL [...] and date of were verified by the catalogue and special products manager prior tothe exam IMPRESSION ----- IUP at [...] of primary provider) us Trina Gonzalez MD ORDERABLES Final Resul t from Last 3 Months Insurance
--- OUTSIDE RECORDS SUMMARY | 2024-12-14 18:41 | XMS_ITS | Clinical Summary ---
Author Organization [facility] Address [address] [place] [address] Care Team Providers Care Quality Coordinator Name Role Phone Unavailable Primary Care Provider Unavailabl e Source Comments [facility],non-owned Affiliates and Associated Physician Practices is amultiple site organization consisting of ambulatory clinics and hospital sitesin [place], [place], [place] and [place]. This disclosure is being madepursuant to the Care Everywhere program and may not contain all information available regarding this patient. Last updated 18.[facility] Allergies Active Allergy Reactions Criticality Noted Date Comments Latex Rash Medium 11/28/2024 Encounters Date Type Department Care Team Description 12/04/2024 2:23 PM CDT - 12/04/2024 11:59 PM CDT Hospital Encounter [facility] Women's Health Maternal & Care [address] [place] [address] Emma Ang MD Discharge Disposition: Home or Self Care 11/27/2024 Travel from Last 3 Months Social [...] Sign Reading Time Taken Comments Blood Pressure 127/75 12/04/2024 3:51 PM CDT Pulse 99 12/04/2024 3:51 PM CDT Temperature - - Respiratory Rate - - Oxygen Saturation - - Inhaled Oxygen Concentration - - Weight 154.3 kg (340 lb 3.2 oz) 12/04/2024 3:48 PM CDT Height 172.7 cm (5' 8) 12/04/2024 3:49 PM CDT Body Mass Index 51.73 12/04/2024 3:48 PM CDT Plan of Treatment Health Maintenance Due [...] over 60 yrs (No Doses Required) Completed Procedures Procedure Name Priority Date/Time Associated Diagnosis Comments BIOPHYSICAL PROFILE W NST Routine 12/04/2024 3:20 PM CDT 33 weeks gestation of (HCC) Other obesity affecting in third trimester (HCC) Encounter for ultrasound to assess growth (HCC) Encounter for screening ([facility]) from Last 3 Months Results * BIOPHYSICAL PROFILE W NST (12/04/2024 3:20 PM CDT) Linked Results Indication ======== Third trimester growth ultrasound Obesity, Class III History ====== OB History 3. Para 2 [id number] 1. live 2014. Gest. age 37 w + 0 d. Sex of child: male. Details: delivery - failed IOL, gestational hypertension 2. live 2021. Gest. age 37 w + 0 d. Sex of child: female. Details: delivery - failed IOL, gestational hypertension Maternal Assessment Physical Exam Height 173 cm, 5 ft 8 in. Weight 154 kg, 340 lb. Initial weight 150 kg, 331 lb. BMI 51.70 kg/m . Initial BMI 50.33 kg/m . Weight gain 4 kg, 9 lb Method ====== Transabdominal ultrasound. View: Suboptimal view: limited by late gestational age ========= Bullock . Number of fetuses: 1 Dating ====== Date Details Gest. age MC LMP 04/05/2024 34 w + 5 d 01/10/2025 U/S 12/04/2024 based upon AC, BPD, Femur, HC 34 w + 2 d 01/13/2025 Assigned dating based on the LMP, selected on 12/04/2024 34 w + 5 d 01/10/2025 General Evaluation Cardiac activity present. FHR 135 bpm. Presentation: breech Placenta: Placental site: posterior; fundal Umbilical cord: Cord vessels: suboptimal. Insertion site: suboptimal Amniotic fluid: Amount of AF: normal. MVP 5.0 cm. DWAYNE 13.8 cm. Q1 4.0 cm, Q2 2.9 cm, Q3 5.0 cm, Q4 1.8 cm Biometry BPD 79.4 mm 31w 6d 1% Hadlock HC 307.3 mm 34w 2d 10% Hadlock AC 325.5 mm 36w 3d 93% Hadlock Femur 67.1 mm 34w 4d 36% Hadlock Humerus 59.7 mm 34w 4d 66% Nawaf HC / AC 0.94 -/- Hadlock Weight Calculation: EFW 2,621 g 60% Hadlock EFW (lb,oz) 5 lb 12 oz EFW by Hadlock ([id number]) overall normal range, but the AC is >90% Growth Overview Exam date GA BPD (mm) HC (mm) AC (mm) FL (mm) HL (mm) EFW (g) 12/04/2024 34w 5d 79.4 1% 307.3 10% 325.5 93% 67.1 36% 59.7 66% 2621 60% Anatomy The following structures appear normal: Head / Neck Thalami. Abdomen Stomach. Kidneys. Bladder. The following structures could not be adequately visualized: Head / Neck Cranium. Lateral ventricles. Choroid plexus. Midline falx. Cavum septi pellucidi. Cerebellum. Cisterna magna. Face Lips. Profile. Nose. Nasal bone. Orbits. Heart / Thorax 4-chamber view. RVOT view. LVOT view. 3-vessel view. 3-ayarzc-lxbcxfz view. Situs. Aortic arch view. Bicaval view. Ductal arch view. Great vessels. Right lung. Left lung. Diaphragm. Abdomen Cord insertion. Bowel. Genitals. Spine Cervical spine. Thoracic spine. Lumbar spine. Sacral spine. Extremities / Skeleton Arms. Hands. Legs. Feet. Non Stress Test NST interpretation: reactive. Baseline FHR 135 bpm. Baseline variability: moderate. Accelerations: present Biophysical Profile 2: breathing movements 2: Gross body movements 2: tone 2: Amniotic fluid volume NST: reactive 04/27 Biophysical profile score Maternal Structures Right Ovary Not visualized Left Ovary Not visualized Impression ========= This is the first exam at our facility at this late GA. Single live intrauterine at 34w 5d, Breech. The size is overall normal range, however the AC is >90% . The amniotic fluid volume is normal. Biophysical Profile: 04/27 Extremely limited views of anatomy due to position and advanced gestational age No major malformations were seen within the limitations of ultrasound. Comment ======== ultrasound alone cannot detect all structural, genetic, or functional , placental, or maternal abnormalities Follow-up ======== Continue weekly testing The patient states that she is having weekly testing at [facility] Coding ====== Procedures 22660: US Preg Uterus Detailed 45836: Biophysical Profile W NST [facility] [employer] PACS Anatomical Region Laterality Modality Other 12/04/2024 3:20 PM CDT Buzz Chin MD [facility] ORDERABLES Edited Result - Final from Last 3 Months Insurance [facility]
[2024-12-14 18:42] LABS: Total Protein Urine Random < 5 mg/dL; Ur Ttl Prot Creatinine Ratio < 0.05 mg/mg (0-0.20)
[2024-12-14 18:52] LABS: Troponin I < 0.012 ng/mL (0.000-0.034)
--- NOTE | 2024-12-14 19:18 | PC.NURSE ---
Ultrasound at bedside.
--- NOTE | 2024-12-14 19:35 | PC.NURSE ---
Called Dr. Dhillon, update on pt, reactive tracing, and DWAYNE. Orders received to discharge pt with instructions to start prescribed antibiotic, call the office tomorrow to make an appointment for next week, and when to return to the unit.
--- NOTE | 2024-12-14 19:41 | PC.NURSE ---
Pt discharged with instructions to start prescribed antibiotic, call the office tomorrow to make an appointment for next week, and when to return to the unit.
== END 2024-12-14 19:41 | disposition home or self-care (01) ==
LOC: ANHED 18:40 → ANHOBOP 18:48 → ANHLDR 18:49
PROVIDERS: Emergency Medicine; Physician Assistant; Emergency Provider Emergency Medicine; PCP Obstetrics & Gynecology; Visit Provider Obstetrics & Gynecology
DX: Z34.90 Encounter for supervision of normal pregnancy, unspecified, unspecified trimester (principal)
CPT/HCPCS: 36415; 59025; 71275; 76815; 80053; 81001; 82570; 83690; 84156; 84484; 84550; 85025; 85380; 85610; 85730; 93005; 93970; 99199; Q9967

== ENCOUNTER 2024-12-18 15:26 | Outpatient (RCR) | payer OTHER, SELFPAY ==
[2024-11-28 12:08] VITALS: BP 127/64
[2024-12-10 12:05] VITALS: BP 138/81; PULSE 103
--- NOTE | ~2024-12-18 | US_ITS ---
EXAMINATION: US OB BPP wo non-stress DATE: 12/10/2024 12:10 CDT INDICATION: Elevated BMI TECHNIQUE: Real-time transabdominal obstetric ultrasound. FINDINGS: 3 para 2 There is a single intrauterine gestation in breech presentation. The placenta is posterior/fundal wi thout placenta previa. cardiac activity and movement is noted with a heart rate of 150 beats per minute. Biophysical profile: breathin of 2 movement: 2 of 2 tone: 2 of 2 Amniotic fluid pocket: 2 of 2 Total score: 8 of 8 Deepest vertical pocket measures 4.8 cm IMPRESSION: 1. Single intrauterine gestation in breech presentation. 2: Total biophysical profile score of 8 out of 8. Reviewed, dictated and finalized at location A.
--- NOTE | ~2024-12-18 | US_ITS ---
EXAMINATION: US OB BPP wo non-stress DATE: 12/18/2024 16:22 INDICATION: BMI of 51 . TECHNIQUE: Real-time ultrasound of the pelvis was performed. COMPARISON: 12/14/2024, 12/10/2024, 11/28/2024 FINDINGS: There is a single living fetus in breech presentation head to maternal left, transverse lie. The debora centa is posterior/fundal, well distant from the cervix. heart rate is 132 bpm. Deepest vertica l amniotic fluid pocket measurements range between 3 and 6 cm. The amniotic fluid volume subjectively appears somewhat low. Biophysical profile performed by the technologist: breathing (30 sec sustained breathing in 30 minutes): 2 out of 2. movement (3 gross body movements in 30 minutes: 2 out of 2. tone (one episode of nurmuwj-swkmbfdfs-yahmqop limb movement): 2 out of 2. Amniotic fluid pocket (2 cm): 2 out of 2. Total score: 8 out of 8. IMPRESSION: Single living fetus in breech presentation. Biophysical profile 8 out of 8. Borderline low amniotic fluid volume. Reviewed, dictated and finalized at location K.
--- NOTE | ~2024-12-18 | US_ITS ---
EXAMINATION: US OB BPP wo non-stress DATE: 11/28/2024 12:08 INDICATION: Biophysical profile for BMI TECHNIQUE: Real-time pelvic ultrasound was performed. The interpreting radiologist was not present fo r the study. COMPARISON: None. FINDINGS: There is a single living fetus in breech presentation. The placenta is posterior fundal and not low- lying. heart rate is 138 beats per minute (bpm). Normal deepest amniotic fluid vertical pocket measurement of 2.9 cm. Biophysical profile performed by the technologist: breathing (30 sec sustained breathing in 30 minutes): 2 out of 2 movement (3 gross body movements in 30 minutes): 2 out of 2 tone (one episode of qxcgzlf-qdfflfhcr-qrrrbaf limb movement): 2 out of 2 Amniotic fluid pocket (2 cm): 2 out of 2 Total score: 8 out of 8 IMPRESSION: 1. Single living fetus in breech presentation with heart rate of 138 bpm. 2. Biophysical profile 8 out of 8. Reviewed, dictated and finalized at location A.
[2024-12-18 16:22] VITALS: BP 146/74; PULSE 103
== END 2024-12-18 16:25 | disposition home or self-care (01) ==
LOC: ANHOBOP 15:26
PROVIDERS: PCP Emergency Medicine; Visit Provider Obstetrics & Gynecology
DX: O26.03 Excessive weight gain in pregnancy, third trimester (principal); Z3A.33 33 weeks gestation of pregnancy
CPT/HCPCS: 59025; 76819

== ENCOUNTER 2024-12-22 07:15 | Inpatient (IN) | payer OTHER, SELFPAY ==
[2024-12-22] VITALS (64 sets, daily range): BP systolic 104–187; BP diastolic 52–164; PULSE 80–257; RESP 14–21; TEMP 36.1–36.9; O2SAT 92–100; BMI 52.9
--- OUTSIDE RECORDS SUMMARY | 2024-12-22 00:53 | XMS_ITS | Clinical Summary ---
Author Organization [facility] Address [address] [place] [address] Care Team Providers Care Renewals Representative Name Role Phone Unavailable Primary Care Provider Unavailabl e Source Comments [facility],non-owned Affiliates and Associated Physician Practices is amultiple site organization consisting of ambulatory clinics and hospital sitesin [place], [place], [place] and [place]. This disclosure is being madepursuant to the Care Everywhere program and may not contain all information available regarding this patient. Last updated 18.[facility] Allergies Active Allergy Reactions Criticality Noted Date Comments Latex Rash Medium 11/28/2024 Encounters Date Type Department Care Team Description 12/04/2024 2:23 PM CDT - 12/04/2024 11:59 PM CDT Hospital Encounter [facility] Women's Health Maternal & Care [address] [place] [address] Emma Ang MD Discharge Disposition: Home or [...] to assess growth (HCC) Encounter for screening ([facility]) from Last 3 Months Results * BIOPHYSICAL PROFILE W NST (12/04/2024 3:20 PM CDT) Linked Results Indication ======== Third trimester growth ultrasound Obesity, Class III History ====== OB History 3. Para 2 [id number] 1. live 2014. Gest. age 37 w [...] 5 lb 12 oz EFW by Hadlock ([id number]) overall normal range, but the AC is [...] view. RVOT view. LVOT view. 3-vessel view. 5-ozaphf-ecupcqt view. Situs. Aortic arch view. Bicaval view. [...] that she is having weekly testing at [facility] Coding ====== Procedures 09150: US Preg Uterus Detailed 00659: Biophysical Profile W NST [facility] [employer] PACS Anatomical Region Laterality Modality Other 12/04/2024 3:20 PM CDT Buzz Chin MD [facility] ORDERABLES Edited Result - Final from Last [address] [facility]
--- OUTSIDE RECORDS SUMMARY | 2024-12-22 00:53 | XMS_ITS | Clinical Summary ---
Author Organization [facility] Address [address] [place] [id number] Care Team Providers Care Big Data Developer Name Role Phone Unavailable Primary Care Provider [...] - 10/12/2024 11:59 PM CDT Hospital Encounter [facility] Maternal and Health [facility] [address] [place] [address] Trina Gonzalez MD Discharge Disposition: [...] ADAM Study Date: 10/12/2024 10:39am Pat. NO: [id number] Referring MD: OZ BOWENS MD Site: [facility] Concierge: Tarah Hess RDMS : 1990 Age: 34 ----- INDICATION ----- Maternal Obesity (BMI>40) Complicating Screening Follow-Up 4ch, palate, spine, R kidney CODING ----- Diagnoses Z3A.27: Weeks of gestation O99.212: Obesity complicating Z3A.27: Weeks of gestation Z36.2: Encounter for other screening follow-up O99.212: Obesity complicating Procedures 23397: Ultrasound, uterus, real time with image documentation, [...] 2 lb 6 oz EFW by Hadlock ([id number]) Head / Face / Neck Biometry: Employee Service Officer 2.1 mm Extremities / Bony Struc Biometry: [...] and date of were verified by the hands and dial inspector prior to the exam IMPRESSION ----- IUP [...] Pat. Name:Roman ADAM Date:10/12/2024 10:39am Pat. NO: [id number] MD:OZ BOWENS MD Site:[facility]:Tarah Hess RDMS :1990Age:34 ----- INDICATION ----- Maternal Obesity (BMI>40) Complicating Screening Follow-Up 4ch, palate, spine, Rkidney CODING ----- Diagnoses Z3A.27: Weeks of gestation O99.212: Obesity complicating Z3A.27: Weeks of gestation Z36.2: Encounter for other screeningfollow-up O99.212: Obesity complicating Procedures 82567: Ultrasound, uterus, real time withimage documentation, follow up, transabdominal approach per fetus HISTORY ----- OB History 3. Para 2 MATERNAL ASSESSMENT ----- Physical Exam Initial weight 150 kg, 330 lb. Initial BMI 51.69kg/m METHOD ----- Transabdominal ultrasound examination ----- Bullock . Number of fetuses: 1 DATING ----- GA by prior [id number] w + 1 d MC by prior [...] 2 lb 6 oz EFW by Hadlock ([id number]) Head / Face / Neck Biometry: Employee Service Officer 2.1mm Extremities / Bony Struc Biometry: FL [...] and date of were verified by the hands and dial inspector prior tothe exam IMPRESSION ----- IUP at [...] Resul t from Last [address] [place] [address] MEDICAID
--- OUTSIDE RECORDS SUMMARY | 2024-12-22 07:27 | XMS_ITS | Clinical Summary ---
Author Organization [facility] Address [address] [place] [id number] Care Team Providers Care Adoption Counselor Name Role Phone Unavailable Primary Care [...] - 10/12/2024 11:59 PM CDT Hospital Encounter [facility] Maternal and Health [facility] [address] [place] [address] Trina Gonzalez MD Discharge Disposition: [...] ADAM Study Date: 10/12/2024 10:39am Pat. NO: [id number] Referring MD: OZ BOWENS MD Site: [facility] Physician: Tarah Hess RDMS : 1990 Age: 34 ----- INDICATION ----- Maternal Obesity (BMI>40) Complicating Screening Follow-Up 4ch, palate, spine, R kidney CODING ----- Diagnoses Z3A.27: Weeks of gestation O99.212: Obesity complicating Z3A.27: Weeks of gestation Z36.2: Encounter for other screening follow-up O99.212: Obesity complicating Procedures 52240: Ultrasound, uterus, real time with image documentation, [...] 2 lb 6 oz EFW by Hadlock ([id number]-FL) Head / Face / Neck Biometry: Cloth Calender 2.1 mm Extremities / Bony Struc Biometry: [...] and date of were verified by the employment programs analyst prior to the exam IMPRESSION ----- IUP [...] Pat. Name:Roman ADAM Date:10/12/2024 10:39am Pat. NO: [id number] MD:OZ BOWENS MD Site:[facility]adder:Tarah Hess RDMS :1990Age:34 ----- INDICATION ----- Maternal Obesity (BMI>40) Complicating Screening Follow-Up 4ch, palate, spine, Rkidney CODING ----- Diagnoses Z3A.27: Weeks of gestation O99.212: Obesity complicating Z3A.27: Weeks of gestation Z36.2: Encounter for other screeningfollow-up O99.212: Obesity complicating Procedures 89258: Ultrasound, uterus, real time withimage documentation, follow up, transabdominal approach per fetus HISTORY ----- OB History 3. Para 2 MATERNAL ASSESSMENT ----- Physical Exam Initial weight 150 kg, 330 lb. Initial BMI 51.69kg/m METHOD ----- Transabdominal ultrasound examination ----- Bullock . Number of fetuses: 1 DATING ----- GA by prior [id number] w + 1 d MC by prior [...] 2 lb 6 oz EFW by Hadlock ([id number]) Head / Face / Neck Biometry: Cloth Calender 2.1mm Extremities / Bony Struc Biometry: FL [...] and date of were verified by the employment programs analyst prior tothe exam IMPRESSION ----- IUP at [...] Resul t from Last [address] [place] [address] [address] MEDICAID
--- OUTSIDE RECORDS SUMMARY | 2024-12-22 07:27 | XMS_ITS | Clinical Summary ---
Author Organization [facility] Address [address] [place] [address] Care Team Providers Care Senior Manufacturing Supervisor Name Role Phone Unavailable Primary Care Provider Unavailabl e Source Comments [facility],non-owned Affiliates and Associated Physician Practices is amultiple site organization consisting of ambulatory clinics and hospital sitesin [place], [place], [place] and [place]. This disclosure is being madepursuant to the Care Everywhere program and may not contain all information available regarding this patient. Last updated 18.[facility] Allergies Active Allergy Reactions Criticality Noted Date Comments Latex Rash Medium 11/28/2024 Encounters Date Type Department Care Team Description 12/04/2024 2:23 PM CDT - 12/04/2024 11:59 PM CDT Hospital Encounter [facility] Women's Health Maternal & Care [address] [place] [address] Emma Ang MD Discharge Disposition: Home or [...] to assess growth (HCC) Encounter for screening ([facility]) from Last 3 Months Results * BIOPHYSICAL PROFILE W NST (12/04/2024 3:20 PM CDT) Linked Results Indication ======== Third trimester growth ultrasound Obesity, Class III History ====== OB History 3. Para 2 [id number] 1. live 2014. Gest. age 37 w [...] 5 lb 12 oz EFW by Hadlock ([id number]) overall normal range, but the AC is [...] view. RVOT view. LVOT view. 3-vessel view. 7-anbrft-rtelwwr view. Situs. Aortic arch view. Bicaval view. [...] that she is having weekly testing at [facility] Coding ====== Procedures 37640: US Preg Uterus Detailed 99207: Biophysical Profile W NST [facility] [employer] PACS Anatomical Region Laterality Modality Other 12/04/2024 3:20 PM CDT Buzz Chin MD [facility] ORDERABLES Edited Result - Final from Last 3 Months Insurance [facility]
--- NOTE | 2024-12-22 07:31 | P.HP_ITS ---
H&P: HPI History of Present Illness Date/Time: 12/22/24 07:31 Chief Complaint: Elective repeat section Narrative: She is a 34 y/o at 37 weeks admitted for elective repeat section for gestational hypertension. Gestational hypertension at She also unstable lie, breech/transverse presentation. PNC also significant for prior section, BMI>50. She has had normal surveillance testing and no signs or symptoms of severe hypertension. She has been counseled regarding risk/benefit of repeat section and trial of labor. Bedside ultrasound today breech. She denies any signs or symptoms of severe induced hypertension. Review of Systems Review of Systems: All systems reviewed & are unremarkable except as noted in HPI and below Constitutional: Constitutional: Reports no additional constitutional complaints and Denies headache(s) Eyes: Eyes: Denies spots in vision ENT: Reports system reviewed and no additional complaints, except as document ed and Denies headache(s) Cardiovascular: Cardiovascular: Denies chest pain and Denies dyspnea Respiratory: Respiratory: Denies dyspnea Gastrointestinal: Gastrointestinal: Reports no additional gastrointestinal complaints Genitourinary: Genitourinary: Reports amenorrhea Musculoskeletal: Musculoskeletal: Reports no additional musculoskeletal complaints Integumentary/Breasts: Skin/Breast: Denies breast mass and Denies rash Neurologic: Denies headache(s) Psychiatric: Psychiatric: Reports no additional psychiatric complaints [facility] Surgical History Surgical History H/O: Family History Family History Father Asthma Mother Diabetes mellitus Hypertension Cerebrovascular accident Thyroid disorder Mother Diabetes mellitus Heart disease Hypertension Cerebrovascular accident Cancer Social History Social History Smoking status: Never smoker Second hand tobacco smoke exposure: No Alcohol intake: current Drinks per week: 1 Alcohol use details: a glass a night Substance use: never Do You Feel Safe in your Home?: Yes Lack of Transportation: No Lack of Food: Never True Current Housing: I Have Housing Concerned About Future Housing: No Difficulty Paying Gas/Electric Bills: No Difficulty Paying for Meds: No Currently Unemployed: No Education: High School Diploma/GED Difficulty w/ Childcare or Family Care: No Spiritual care concerns: No Meds Home Medications and Allergies Home Medications ?Medication ?Instructions ?Recorded ?Confirmed ?Type aspirin 81 mg tablet,delayed 81 mg PO DAILY 09/07/24 12/22/24 History release docosahexaenoic acid 200 mg 1 mg PO 09/07/24 11/27/24 History capsule ( DHA) albuterol sulfate 90 mcg/actuation 1 inh inhalation Q4H PRN shortness 11/27/24 12/22/24 Rx aerosol inhaler (Ventolin HFA) of breath or wheezing #8.5 grams azithromycin 250 mg tablet See Rx Instructions PO .COMPLEX #6 12/14/24 12/22/24 Rx (Zithromax Z-Marc) tabs Allergies Allergy/AdvReac Type Severity Reaction Status Date / Time latex Allergy Rash Verified 12/20/24 14:10 Latex, Natural Rubber AdvReac Rash Verified 12/20/24 14:10 Exam Const: General: no acute distress Eyes: General: appearance normal, both eyes and all related structures Resp: Effort & Inspection: normal respiratory effort Cardio: Rate: regular rate GI: Other: Gravid no fundal tenderness no right upper quadrant pain Skin: General skin exam: no rashes or lesions noted Neuro: Cognition (Neuro): normal cognition Extrem: General: normal to inspection Psych: Mental Status: mental status grossly normal Assessment and Plan Assessment and plan (1) Delivery by elective section: Code(s): O82 - Encounter for delivery without indication Status: Acute Assessment and Plan: Patient opts to proceed with delivery via repeat section. (2) Gestational hypertension: Code(s): O13.9 - Gestational [-induced] hypertension without significant proteinuria, unspecified trimester Status: Acute Assessment and Plan: No severe symptoms. (3) Breech presentation: Code(s): O32.1XX0 - Maternal care for breech presentation, not applicable or unspecified Status: Acute
[2024-12-22] MEDS: ACETAMINOPHEN 500 MG TABLET 1000 MG PO (07:40)
--- NOTE | 2024-12-22 07:44 | LDADM ---
This patient, Lolly Blair, was admitted to /Delivery/Recovery 119 on 12/22/24 at 07:15. Plans for , pain management and were discussed with patient. Patient/family oriented to hospital policies and general routines including ID bracelet, bed and alarms, visiting hours, pain management, procedures, bathroom and other care routines, personal items, smoking policy, room service/diet and guest tray routines, security routines, and visiting hours. Patient/Family are encouraged to report perceived risks to care and to ask questions if they do not understand what they are told or what they should do. See OBIX for further documentation.
[2024-12-22 08:00] LABS: Basophils Percent Auto 0.2 % (0.2-1.2); Eosinophils Absolute Auto 0.2 K/mm3 (0-0.3); Eosinophils Percent Auto 1.5 % (0-4.4); Hematocrit 35.7 % (37.0-47.0); Hemoglobin 11.3 g/dL (12.0-15.0); Immature Granulocyte Absolute 0.08 K/mm3 (0.00-0.031); Immature Granulocyte Percent A 0.6 % (0-0.5); Lymphocytes Absolute Auto 1.82 K/mm3 (0.9-3.2); Lymphocytes Percent Auto 14.7 % (18.3-44.2); Mean Corpuscular HGB Conc 31.7 g/dl (32-36); Mean Corpuscular Hemoglobin 26.6 pg (26-34); Monocytes Absolute Auto 0.6 K/mm3 (0.1-0.6); Monocytes Percent Auto 5.2 % (2.6-8.5); Neutrophils Absolute Auto 9.6 K/mm3 (1.3-6.7); Neutrophils Percent Auto 77.8 % (45.5-73.1); Platelet Count Result 357 k/mm3 (150-375); Red Blood Count 4.25 M/mm3 (4.2-5.4); White Blood Count 12.4 K/mm3 (4.5-10.0)
[2024-12-22] MEDS: LACTATED RINGERS 1,000 ML 125 ML IV CONT (08:03)
[2024-12-22 08:10] LABS: Uric Acid 4.6 mg/dL (2.5-7.5)
[2024-12-22 08:20] LABS: Alanine Aminotransferase 18 U/L (6-35); Albumin Level 3.5 g/dL (3.5-5.1); Alkaline Phosphatase 126 U/L (38-126); Anion Gap 8 mmol/L (4-12); Aspartate Amino Transferase 28 U/L (14-36); Bilirubin,Total 0.3 mg/dL (0.2-1.3); Blood Urea Nitrogen 6 mg/dL (7-17); Calcium 10.2 mg/dL (8.4-10.2); Carbon Dioxide 19 mmol/L (22-30); Chloride 108 mmol/L (98-107); Estimated CRCL calculation 189 ml/min; Estimated Glomerular Filt Rate > 60; Glucose 109 mg/dL (65-110); Potassium 4.1 mmol/L (3.4-5.0); Sodium 135 mmol/L (137-145); Total Protein 7.1 g/dL (6.3-8.2)
[2024-12-22 08:43] LABS: Syphilis IgG/IgM Antibody Non-Reactive (Nonreactive)
[2024-12-22 09:03] LABS: HIV 1/2 Ab P24 Ag Result Negative (Negative)
[2024-12-22] MEDS: FAMOTIDINE 20 MG/2 ML VIAL IV PUSH (09:46)
[2024-12-22] MEDS: ONDANSETRON INJ 4 MG/2 ML VIAL IV PUSH (09:49)
--- NOTE | 2024-12-22 09:54 | P.PNAN_ITS ---
Anes - Initial Pre Proc Eval Procedure: Operation Date: 12/22/24 09:30 Proposed Procedures p Repeat Section - Buzz Dhillon MD Date/Time: 12/22/24 09:54 Surgeon: Buzz Dhillon MD Pre Op Diagnosis: C Section Patient Data Age: 34 Gender: F Height: 1.7 m Weight: 153.3 kg Last Vital Signs Temp 36.9 C 12/22/24 08:00 O2 Del Method Room Air 12/22/24 07:43 Allergies Allergy/AdvReac Type Severity Reaction Status Date / Time latex Allergy Rash Verified 12/20/24 14:10 Latex, Natural Rubber AdvReac Rash Verified 12/20/24 14:10 Home Medications ?Medication ?Instructions ?Recorded ?Confirmed ?Type aspirin 81 mg tablet,delayed 81 mg PO DAILY 09/07/24 12/22/24 History release docosahexaenoic acid 200 mg 1 mg PO 09/07/24 11/27/24 History capsule ( DHA) albuterol sulfate 90 mcg/actuation 1 inh inhalation Q4H PRN shortness 11/27/24 12/22/24 Rx aerosol inhaler (Ventolin HFA) of breath or wheezing #8.5 grams azithromycin 250 mg tablet See Rx Instructions PO .COMPLEX #6 12/14/24 12/22/24 Rx (Zithromax Z-Marc) tabs Laboratory Tests 12/22/24 07:42 WBC 12.4 H K/mm3 (4.5-10.0) RBC 4.25 M/mm3 (4.2-5.4) Hgb 11.3 L g/dL (12.0-15.0) Hct 35.7 L % (37.0-47.0) MCV 84.0 fl (80-100) MCH 26.6 pg (26-34) MCHC 31.7 L g/dl (32-36) RDW 15.0 H % (11.5-14.5) Plt Count 357 k/mm3 (150-375) MPV 10.0 fl (7.4-10.4) Immature Gran % (Auto) 0.6 H % (0-0.5) Neut % (Auto) 77.8 H % (45.5-73.1) Lymph % (Auto) 14.7 L % (18.3-44.2) [place] % (Auto) 5.2 % (2.6-8.5) Eos % (Auto) 1.5 % (0-4.4) Baso % (Auto) 0.2 % (0.2-1.2) Lymph # (Auto) 1.82 K/mm3 (0.9-3.2) [place] # (Auto) 0.6 K/mm3 (0.1-0.6) Eos # (Auto) 0.2 K/mm3 (0-0.3) Baso # (Auto) 0.0 K/mm3 (0.0-0.1) Abs Immat Gran (auto) 0.08 H K/mm3 (0.00-0.031) Absolute Neuts (auto) 9.6 H K/mm3 (1.3-6.7) Absolute Nucleated RBC 0.000 K/mm3 (0.0-0.012) Nucleated RBC % 0.0 % (0.0-0.2) Sodium 135 L mmol/L (137-145) Potassium 4.1 mmol/L (3.4-5.0) Chloride 108 H mmol/L (98-107) Carbon Dioxide 19 L mmol/L (22-30) Anion Gap 8 mmol/L (4-12) BUN 6 L mg/dL (7-17) Creatinine 0.56 L mg/dL (0.7-1.0) Estim Creat Clear Calc 189 ml/min Estimated GFR > 60 (59 - ) Glucose 109 mg/dL (65-110) Uric Acid 4.6 mg/dL (2.5-7.5) Calcium 10.2 mg/dL (8.4-10.2) Total Bilirubin 0.3 mg/dL (0.2-1.3) AST 28 U/L (14-36) ALT 18 U/L (6-35) Alkaline Phosphatase 126 U/L (38-126) Total Protein 7.1 g/dL (6.3-8.2) Albumin 3.5 g/dL (3.5-5.1) Syphilis IgG/IgM Ab Non-reactive (Nonreactive) HIV 1&2 Ab/P24 Ag 4thGn Negative (Negative) Blood Type A Positive Antibody Screen Negative Patient hx anesthesia problems: none Family hx anesthesia problems: none Results Review: All pre-operative results and documents have been reviewed as part of the pre- operative evaluation. [facility] Surgical History Surgical History H/O: Family History Family History Father Asthma Mother Diabetes mellitus Hypertension Cerebrovascular accident Thyroid disorder Mother Diabetes mellitus Heart disease Hypertension Cerebrovascular accident Cancer Social History Social History (System 12/15/24 @ 12:07 by Lyric Heller) Smoking status: Never smoker Second hand tobacco smoke exposure: No Alcohol intake: current Drinks per week: 1 Alcohol use details: a glass a night Substance use: never Do You Feel Safe in your Home?: Yes Lack of Transportation: No Lack of Food: Never True Current Housing: I Have Housing Concerned About Future Housing: No Difficulty Paying Gas/Electric Bills: No Difficulty Paying for Meds: No Currently Unemployed: No Education: High School Diploma/GED Difficulty w/ Childcare or Family Care: No Spiritual care concerns: No Anes - Eval Final PreProcedure Day of Procedure 12/22/24 09:54 Patient weight: obese Heart: regular rate and rhythm Lungs: clear to auscultation and normal air movement Airway: Mallampati scale class II Neurological: alert and oriented Last oral intake: >/= 8 hours ASA classification: III Emergent: no Anesthetic plan: proceed Anesthesia type and monitoring: regional spinal and standard monitoring Results Review: All pre-operative results and documents have been reviewed as part of the pre- operative evaluation. Informed Consent: The patient's anesthetic plan and its attendant risks and benefits were discussed with the patient/family/POA. Questions were solicited and answers provided to the satisfaction of the patient/family/POA.
--- NOTE | 2024-12-22 10:10 | WPDOBADMIT ---
Obstetrics - Admit Note Admission Note: record reviewed. No pertinent additions to the history and/or any subsequent changes in the physical findings that are not consistent with the expected course of the were found. Additions to the history and/or subsequent changes in the physical findings follow. None.
[2024-12-22] MEDS: LACTATED RINGERS 250 ML 999 ML IVPB (10:13)
[2024-12-22] MEDS: ceFAZolin 3 GM/D5W 100 ML 100 ML IVPB (10:16)
--- NOTE | 2024-12-22 11:14 | S_PTH ---
PATIENT: Lolly Blair LOC: ANHOB2 U#:[id number] AGE/SX: 34/F ROOM: 286 RE12/22/[address]: Migdalia Fonseca MD : 1990 BED: 00 DIS: 12/24/2024 SPEC #: [id number] RECD: 12/25/24 07:29 STATUS: SAMANTHA REGodwin #: [id number] PIERRE: 12/22/24 11:[address]: Buzz Dhillon DEPT: [facility] Surgical RECD BY: Adriana Villalobos ENTERED: 12/25/24 07:29 SP TYPE: Surgical OTHR DR: Louis Marx, DO UNKNOWN,DOCTOR Tissues: A - Placenta Procedures: Hematoxylin and Eosin Stain Gross and Microscopic Level 5
--- NOTE | 2024-12-22 11:56 | W.PM.OBCSD ---
OB - Delivery Note Procedure Delivery date: 12/22/24 Pre-op diagnosis: Breech Presentation and Previous Delivery Post-op Diagnosis: Same Delivery monitor: External FHT Prior to decision for section, ACOG/SMFM labor guidelines were considered and discussed with the patient and staff. Decision made to proceed with the section.: Yes Procedure Performed: Repeat Surgeon: Buzz Dhillon MD Anesthesia type: Spinal Description of Procedure/Findings: Female infant [id number] Vertex Specimen: Yes (placenta and cord) Estimated Blood Loss: 415 Drains: No Packing: No Pathology: Yes (placenta and cord) Complications: No immediate complications Condition: Stable Disposition: Floor Round O Baby Date of : 12/22/24 Gestational Age by Date: 37 Weight (pounds): 6 Weight (ounces): 15 presentation: vertex position: Right Occiput Anterior Placenta delivery description: Manual Removal Cord Vessel Description: 3 Vessels and Clamped/Cut
--- NOTE | 2024-12-22 12:10 | PC.NURSE ---
1210: Pt called out and stated that she passed a blood clot (87 ml). RN assisted pt to the BR. Pt ambulated and voided without difficulty. No active heavy vaginal bleeding noted currently. Pericare done. Ice pack, tucks, dermoplast spray applied to perineum. Pt assisted back to bed. Fundus firm at u/u with no active bleeding or clots expressed. Pt resting comfortably and instructed to call RN if she feels increased vag. bleeding or clots again.
[2024-12-22] MEDS: KETOROLAC 15 MG/ML VIAL (*BKC) IV PUSH ×2 (14:13→19:55)
[2024-12-22] MEDS: ACETAMINOPHEN 325 MG TABLET 650 MG PO ×2 (14:13→19:55)
[2024-12-22] MEDS: KCL 20 MEQ/D5/0.45% SOD CHL 1,000 ML 125 ML IV CONT ×2 (14:32→22:54)
--- NOTE | 2024-12-22 15:13 | PC.NURSE ---
1422. Patient transferred to post room #286 via bed, at moms bedside in crib. Support person present. Oriented to unit, room, information board, rooming in, admission packet and security measures. Patient verbalizes understanding.
--- NOTE | 2024-12-22 15:15 | PC.NURSE ---
Patient set up with a breast pump due to her preference to pump and bottle feed. She requested an insurance pump and a Medela pump in style was provided. Mother was shown proper sizing (20mm nipple size, 24mm flange) and placement of flanges, pump settings, and cleaning of pump parts. Recommended 15 minutes of pumping both breasts simultaneously. Patient is aware that pumping should not hurt. She is encouraged to use the highest comfortable suction setting, gradually increasing the level as she pumps. Breast milk storage guidelines given. Discussed use of expressed breast milk by placing drops of milk in baby?s mouth with a clean finger, syringe feeding, bottle feeding, or mixing colostrum with a small volume of formula and feeding with a bottle.? Primary RN updated.??
[2024-12-22] MEDS: DOCUSATE SODIUM 100 MG CAPSULE PO (16:57)
[2024-12-22] MEDS: SIMETHICONE 80 MG TAB.CHEW PO (16:57)
[2024-12-23] VITALS (7 sets, daily range): BP systolic 104–146; BP diastolic 70–90; PULSE 83–96; RESP 16–18; TEMP 36.1–36.6; O2SAT 97–99
[2024-12-23] MEDS: ACETAMINOPHEN 325 MG TABLET 650 MG PO ×4 (02:34→20:28)
[2024-12-23] MEDS: KETOROLAC 15 MG/ML VIAL (*BKC) IV PUSH ×2 (02:34→08:43)
[2024-12-23 04:48] LABS: Basophils Percent Auto 0.3 % (0.2-1.2); Eosinophils Absolute Auto 0.2 K/mm3 (0-0.3); Eosinophils Percent Auto 2.2 % (0-4.4); Hematocrit 29.9 % (37.0-47.0); Hemoglobin 9.4 g/dL (12.0-15.0); Immature Granulocyte Absolute 0.05 K/mm3 (0.00-0.031); Immature Granulocyte Percent A 0.5 % (0-0.5); Lymphocytes Absolute Auto 1.87 K/mm3 (0.9-3.2); Lymphocytes Percent Auto 16.9 % (18.3-44.2); Mean Corpuscular HGB Conc 31.4 g/dl (32-36); Mean Corpuscular Hemoglobin 26.8 pg (26-34); Mean Corpuscular Volume 85.2 fl (80-100); Mean Platelet Volume 9.9 fl (7.4-10.4); Monocytes Absolute Auto 0.8 K/mm3 (0.1-0.6); Monocytes Percent Auto 6.8 % (2.6-8.5); Neutrophils Absolute Auto 8.1 K/mm3 (1.3-6.7); Neutrophils Percent Auto 73.3 % (45.5-73.1); Platelet Count Result 265 k/mm3 (150-375); Red Blood Count 3.51 M/mm3 (4.2-5.4); White Blood Count 11.1 K/mm3 (4.5-10.0)
--- NOTE | 2024-12-23 06:52 | WPDANLDPN2 ---
Anes-Prog Note L&D Date/Time: 12/23/24 06:52 Comfortable throughout: section Neuraxial method: spinal Epidural/Spinal procedure site: clean & non-tender Neuro status: Neuro function grossly intact. Cardiovascular status: normal Respiratory status: normal Airway patency: baseline Mental status: baseline Post-Op hydration status: normal Vital Signs: Last Vital Signs Temp 97 F L 12/23/24 04:15 Pulse 83 12/23/24 04:15 Resp 16 12/23/24 04:15 BP 111/70 12/23/24 04:15 Pulse Ox 97 12/23/24 04:15 O2 Del Method Room Air 12/22/24 20:00 Pain score (VAS): 0 I/O: Intake & Output 12/22/24 12/22/24 12/23/24 15:59 23:59 07:59 Intake Total 1354 1300 Output Total 264 695 475 Balance 729 1015 -475 Post-procedural complaints: none Patient feedback: Patient satisfied with anesthetic care. Other findings: pt has been OOB & ambulating without complaints.
--- NOTE | 2024-12-23 06:53 | WPDANLDNPN2 ---
Anes-Prog Note L&D-Neuraxial Date/Time: 12/23/24 06:53 Neuraxial medications: intrathecal PF morphine Opiod-related complaints: none Patient feedback: Patient satisfied with post-operative pain management.
[2024-12-23] MEDS: POLYSACCHARIDE IRON COMPLEX 150 MG CAPSULE PO ×2 (08:43→17:35)
[2024-12-23] MEDS: DOCUSATE SODIUM 100 MG CAPSULE PO ×2 (08:43→17:35)
[2024-12-23] MEDS: SIMETHICONE 80 MG TAB.CHEW PO ×3 (08:43→17:35)
[2024-12-23] MEDS: MULTIVIT/MIN/PREN/FOL AC/IRON TABLET 1 TAB PO (08:43)
--- NOTE | 2024-12-23 09:07 | PM.OBPNVD ---
OB - PN: Subj Subjective Date/time seen: 12/23/24 09:10 Narrative: POD#1 Lolly reports doing well today. Her bleeding is lining folder. Her pain is controlled. She is tolerating regular diet, voiding, passing gas, and ambulating without issues. She denies any issues with her incision. She is breast and bottle feeding. OB - PN: Obj Data Labs 12/23/24 04:35 12/22/24 07:42 Labs: Laboratory Results - last 24 hr 12/22/24 07:42 WBC 12.4 H RBC 4.25 Hgb 11.3 L Hct 35.7 L MCV 84.0 MCH 26.6 MCHC 31.7 L RDW 15.0 H Plt Count 357 MPV 10.0 Immature Gran % (Auto) 0.6 H Neut % (Auto) 77.8 H Lymph % (Auto) 14.7 L [place] % (Auto) 5.2 Eos % (Auto) 1.5 Baso % (Auto) 0.2 Lymph # (Auto) 1.82 [place] # (Auto) 0.6 Eos # (Auto) 0.2 Baso # (Auto) 0.0 Abs Immat Gran (auto) 0.08 H Absolute Neuts (auto) 9.6 H Absolute Nucleated RBC 0.000 Nucleated RBC % 0.0 Sodium 135 L Potassium 4.1 Chloride 108 H Carbon Dioxide 19 L Anion Gap 8 BUN 6 L Creatinine 0.56 L Estim Creat Clear Calc 189 Estimated GFR > 60 Glucose 109 Uric Acid 4.6 Calcium 10.2 Total Bilirubin 0.3 AST 28 ALT 18 Alkaline Phosphatase 126 Total Protein 7.1 Albumin 3.5 Syphilis IgG/IgM Ab Non-reactive HIV 1&2 Ab/P24 Ag 4thGn Negative Blood Type A Positive Antibody Screen Negative OB - PN A/P Assessment and Plan (1) S/P repeat low transverse : Code(s): Z98.891 - History of uterine scar from previous surgery Status: Acute Plan day: 1 Plan: routine care Comments: - PO pain meds - Regular diet - Ambulation and hydration encouraged - Continue pumping/putting baby to breast q2-3hr Time Spent With Patient Time: Total time spent is greater than 50% in coordination of care (as documented) at patient's floor/unit and/or counseling patient: Review of Systems Constitutional: Constitutional: Denies chills, Denies fever(s) and Denies headache(s) Eyes: Eyes: Denies change in vision ENT: Denies dizziness and Denies headache(s) Cardiovascular: Cardiovascular: Denies chest pain, Denies palpitations and Denies dyspnea Respiratory: Respiratory: Denies cough and Denies dyspnea Gastrointestinal: Gastrointestinal: Denies nausea and Denies vomiting Genitourinary: Comments: normal bleeding Neurologic: Denies dizziness and Denies headache(s) Endocrine: Endocrine: Denies palpitations Exam Const: General: cooperative, comfortable and no acute distress Orientation/consciousness: patient oriented x3 Resp: Effort & Inspection: normal respiratory effort Auscultation: clear to auscultation bilaterally Cardio: Rate: regular rate GI: Inspection: non-distended and incision (covered with clean dressing) GI Palp: Yes abdominal tenderness (appropriate) and Yes Soft to palpation Auscultation: normal bowel sounds : Other: fundus firm Skin: General skin exam: normal color Neuro: General: patient oriented x3 Extrem: General: normal to inspection Psych: Appearance: grossly normal Affect: normal affect Attitude: cooperative
[2024-12-23] MEDS: IBUPROFEN 600 MG TABLET PO ×2 (14:28→20:28)
[2024-12-24] MEDS: ACETAMINOPHEN 325 MG TABLET 650 MG PO ×2 (03:39→10:26)
[2024-12-24] MEDS: IBUPROFEN 600 MG TABLET PO ×2 (03:39→10:27)
[2024-12-24 03:40] VITALS: BP 114/65; PULSE 82
--- NOTE | 2024-12-24 09:00 | PM.OBDSVD ---
DS: Admitting Diagnosis Discharge Date 12/24/24 <Migdalia Fonseca MD - Last Filed: 12/24/24 10:21> Admitting Diagnosis Gestational hypertension Elective repeat section <Buzz Dhillon MD - Last Filed: 12/23/24 06:37> DS: Discharge Diagnosis Discharge Diagnosis (1) S/P repeat low transverse : Code(s): Z98.891 - History of uterine scar from previous surgery <Buzz Dhillon MD - Last Filed: 12/23/24 06:37> Status: Acute <Buzz Dhillon MD - Last Filed: 12/23/24 06:37> (2) Gestational hypertension: Code(s): O13.9 - Gestational [-induced] hypertension without significant proteinuria, unspecified trimester <Buzz Dhillon MD - Last Filed: 12/23/24 06:37> Status: Acute <Buzz Dhillon MD - Last Filed: 12/23/24 06:37> OB - DS: Summary Hospital Course Hospital Course: She was admitted for elective repeat section. She had an uncomplicated section. She did well . Baby did well . Mild asymptomatic anemia. She was tolerating regular diet, ambulating well, and had adequate pain control prior to discharge. <Buzz Dhillon MD - Last Filed: 12/23/24 06:37> OB Procedures : PIH Mgmt and Ultrasound <Buzz Dhillon MD - Last Filed: 12/23/24 06:37> OB Procedures Intrapartum: <Buzz Dhillon MD - Last Filed: 12/23/24 06:37> OB Procedures: : None <Buzz Dhillon MD - Last Filed: 12/23/24 06:37> Peripartum Data Delivery Method: Section <Buzz Dhillon MD - Last Filed: 12/23/24 06:37> Procedures: Procedures Operation Date: 12/22/24 09:30 Actual Procedure Side Surgeon p Repeat Section Not Applicable Buzz Dhillon MD <Buzz Dhillon MD - Last Filed: 12/23/24 06:37> complications: none <Buzz Dhillon MD - Last Filed: 12/23/24 06:37> Status at Discharge Functional status at discharge: independent ambulation <Buzz Dhillon MD - Last Filed: 12/23/24 06:37> Overall status at discharge: patient is progressing back to baseline <Migdalia Fonseca MD - Last Filed: 12/24/24 10:21> Time Spent with Patient Time attestation: Total time spent providing and/or coordinating discharge services: <Buzz Dhillon MD - Last Filed: 12/23/24 06:37> Time spent: Less than 30 minutes <Migdalia Fonseca MD - Last Filed: 12/24/24 10:21> Exam Const: General: cooperative <Buzz Dhillon MD - Last Filed: 12/23/24 06:37> Nutritional Appearance: obese <Migdalia Fonseca MD - Last Filed: 12/24/24 10:21> Orientation/consciousness: oriented to person, oriented to place and oriented to time <Buzz Dhillon MD - Last Filed: 12/23/24 06:37> HENMT: Face/Nose/Sinus: Normal external nose present <Buzz Dhillon MD - Last Filed: 12/23/24 06:37> Eyes: General: appearance normal, both eyes and all related structures <Buzz Dhillon MD - Last Filed: 12/23/24 06:37> Resp: Effort & Inspection: normal respiratory effort <Buzz Dhillon MD - Last Filed: 12/23/24 06:37> Auscultation: clear to auscultation bilaterally <Migdalia Fonseca MD - Last Filed: 12/24/24 10:21> Cardio: Rate: regular rate <Migdalia Fonseca MD - Last Filed: 12/24/24 10:21> GI: Inspection: normal to inspection <Buzz Dhillon MD - Last Filed: 12/23/24 06:37> Inspection: incision (covered with clean dressing) <Migdalia Fonseca MD - Last Filed: 12/24/24 10:21> GI Palp: No abdominal tenderness and Yes Soft to palpation <Migdalia Fonseca MD - Last Filed: 12/24/24 10:21> Auscultation: normal bowel sounds <Migdalia Fonseca MD - Last Filed: 12/24/24 10:21> : Other: fundus firm <Migdalia Fonseca MD - Last Filed: 12/24/24 10:21> Skin: General skin exam: normal color <Buzz Dhillon MD - Last Filed: 12/23/24 06:37> Neuro: General: oriented to person, oriented to place and oriented to time <Buzz Dhillon MD - Last Filed: 12/23/24 06:37> Extrem: General: normal to inspection and no calf tenderness <Buzz Dhillon MD - Last Filed: 12/23/24 06:37> Psych: Appearance: grossly normal <Buzz Dhillon MD - Last Filed: 12/23/24 06:37> Mental Status: mental status grossly normal <Buzz Dhillon MD - Last Filed: 12/23/24 06:37> Affect: normal affect <Migdalia Fonseca MD - Last Filed: 12/24/24 10:21> Attitude: cooperative <Migdalia Fonseca MD - Last Filed: 12/24/24 10:21> DS: Data Data Completed and Pending Pending studies at discharge: Pending at discharge 12/22/24 11:14 Surgical [PTH] Routine <Buzz Dhillon MD - Last Filed: 12/23/24 06:37> Labs on day of discharge: Labs from last 24 hours 12/23/24 12/22/24 04:35 07:42 WBC 11.1 H 12.4 H RBC 3.51 L 4.25 Hgb 9.4 L 11.3 L Hct 29.9 L 35.7 L MCV 85.2 84.0 MCH 26.8 26.6 MCHC 31.4 L 31.7 L RDW 15.0 H 15.0 H Plt Count 265 357 MPV 9.9 10.0 Immature Gran % (Auto) 0.5 0.6 H Neut % (Auto) 73.3 H 77.8 H Lymph % (Auto) 16.9 L 14.7 L [place] % (Auto) 6.8 5.2 Eos % (Auto) 2.2 1.5 Baso % (Auto) 0.3 0.2 Lymph # (Auto) 1.87 1.82 [place] # (Auto) 0.8 H 0.6 Eos # (Auto) 0.2 0.2 Baso # (Auto) 0.0 0.0 Abs Immat Gran (auto) 0.05 H 0.08 H Absolute Neuts (auto) 8.1 H 9.6 H Absolute Nucleated RBC 0.000 0.000 Nucleated RBC % 0.0 0.0 Sodium 135 L Potassium 4.1 Chloride 108 H Carbon Dioxide 19 L Anion Gap 8 BUN 6 L Creatinine 0.56 L Estim Creat Clear Calc 189 Estimated GFR > 60 Glucose 109 Uric Acid 4.6 Calcium 10.2 Total Bilirubin 0.3 AST 28 ALT 18 Alkaline Phosphatase 126 Total Protein 7.1 Albumin 3.5 Syphilis IgG/IgM Ab Non-reactive HIV 1&2 Ab/P24 Ag 4thGn Negative Blood Type A Positive Antibody Screen Negative <Buzz Dhillon MD - Last Filed: 12/23/24 06:37> Discharge Plan Discharge Attending physician on discharge: Buzz Dhillon <Buzz Dhillon MD - Last Filed: 12/23/24 06:37> Buzz Dhillon <Migdalia Fonseca MD - Last Filed: 12/24/24 10:21> Consulting providers: Louis Marx <Buzz Dhillon MD - Last Filed: 12/23/24 06:37> Discharging Clinician: Migdalia Fonseca <Buzz Dhillon MD - Last Filed: 12/23/24 06:37> Migdalia Fonseca <Migdalia Fonseca MD - Last Filed: 12/24/24 10:21> Patient Disposition: Home <Buzz Dhillon MD - Last Filed: 12/23/24 06:37> Activity: may shower, no straining, no driving and pelvic rest <Buzz Dhillon MD - Last Filed: 12/23/24 06:37> may shower, no straining, no driving and pelvic rest <Migdalia Fonseca MD - Last Filed: 12/24/24 10:21> Diet: regular <Buzz Dhillon MD - Last Filed: 12/23/24 06:37> regular <Migdalia Fonseca MD - Last Filed: 12/24/24 10:21> Patient Language: Estonian <Buzz Dhillon MD - Last Filed: 12/23/24 06:37> Stand Alone Forms: General Discharge Information <Buzz Dhillon MD - Last Filed: 12/23/24 06:37> Follow-up/Referrals: Buzz Dhillon MD [Physician] - Call for Appointment (Will need two week follow up.) <Buzz Dhillon MD - Last Filed: 12/23/24 06:37> Discharge Medications: New hydrocodone-acetaminophen 5-325 mg Tablet 1 tablet PO Q3H PRN (Reason: Breakthrough Pain Rated 4-6) Qty: 20 0RF ibuprofen 600 mg Tablet 600 mg PO Q6H Qty: 30 0RF acetaminophen 325 mg Tablet 650 mg PO Q6H Qty: 40 0RF docusate sodium 100 mg Capsule 100 mg PO BID Qty: 90 0RF Continued DHA 200 mg capsule 1 mg PO aspirin 81 mg tablet,delayed release (DR/EC) 81 mg PO DAILY azithromycin [Zithromax Z-Marc] 250 mg tablet See Rx Instructions PO .COMPLEX Qty: 6 0RF Rx Instructions: For 250 mg dose pack: take 500 mg today (day 1), then 250 mg for 4 days (days 2-5) albuterol sulfate [Ventolin HFA] 90 mcg/actuation HFA aerosol inhaler 1 inh inhalation Q4H PRN (Reason: shortness of breath or wheezing) Qty: 8.5 0RF <Buzz Dhillon MD - Last Filed: 12/23/24 06:37> Date of admission: 12/22/24 07:15 <Buzz Dhillon MD - Last Filed: 12/23/24 06:37> Primary Care Provider: UNKNOWN,DOCTOR <Buzz Dhillon MD - Last Filed: 12/23/24 06:37> Admitting Provider: Buzz Dhillon <Buzz Dhillon MD - Last Filed: 12/23/24 06:37> Attending physician on admission: Buzz Dhillon <Buzz Dhillon MD - Last Filed: 12/23/24 06:37> Condition: Stable <Buzz Dhillon MD - Last Filed: 12/23/24 06:37>
[2024-12-24 09:45] VITALS: BP 142/96; PULSE 92; RESP 18; TEMP 36.6; O2SAT 100; O2SAT 98
[2024-12-24] MEDS: DOCUSATE SODIUM 100 MG CAPSULE PO (10:26)
[2024-12-24] MEDS: POLYSACCHARIDE IRON COMPLEX 150 MG CAPSULE PO (10:27)
[2024-12-24] MEDS: MULTIVIT/MIN/PREN/FOL AC/IRON TABLET 1 TAB PO (10:27)
[2024-12-24] MEDS: SIMETHICONE 80 MG TAB.CHEW PO (10:27)
[2024-12-25 15:54] VITALS: BP 137/81; PULSE 100; RESP 18; TEMP 36.9; O2SAT 100
== END 2024-12-24 11:20 | disposition home or self-care (01) | DRG 540 ==
LOC: ANHLDR 07:32 → ANHOB2 17:14 → ANHLDR 12-26 11:07
PROVIDERS: Admitting Provider Obstetrics & Gynecology; Visit Provider Obstetrics & Gynecology
PROC: 10D00Z1 Extraction of Products of Conception, Low, Open Approach (ICD-10-PCS; CPT 59514; principal; 2024-12-22 09:30)
DX: O34.211 Maternal care for low transverse scar from previous cesarean delivery (principal); Z37.0 Single live birth; Z3A.37 37 weeks gestation of pregnancy; O13.4 Gestational [pregnancy-induced] hypertension without significant proteinuria, complicating childbirth; O32.0XX0 Maternal care for unstable lie, not applicable or unspecified; O32.1XX0 Maternal care for breech presentation, not applicable or unspecified; O90.81 Anemia of the puerperium; D64.9 Anemia, unspecified
CPT/HCPCS: 36415; 80053; 84550; 85025; 86593; 86703; 86850; 86900; 86901; 88307; A9270; G0432; J0690; J1885; J2274; J2405; J2590; J3480; J7120

== ENCOUNTER 2025-03-14 06:57 | Outpatient (RCR) | payer OTHER, SELFPAY ==
--- NOTE | 2025-02-08 08:10 | WNDPHOTO ---
PHOTO ONLY - See Nursing Notes and/ or assessments for documentation.
[2025-02-08 08:46] VITALS: BMI 50.5
--- NOTE | 2025-02-27 09:09 | PCWOUND ---
WOCN NOTE Patient cancelled due to car trouble. she will reschedule for next week.
== END 2025-04-30 08:08 | disposition home or self-care (01) ==
LOC: ANHWOC 06:57
PROVIDERS: PCP Family Medicine; Visit Provider Obstetrics & Gynecology
DX: O90.2 Hematoma of obstetric wound (principal); Z48.01 Encounter for change or removal of surgical wound dressing
CPT/HCPCS: 99213; A9270; G0463